=== PATIENT | female | born 1960 | race Caucasian/White ===

== ENCOUNTER 2024-12-12 10:10 | Outpatient (CLI) | payer BC, SELFPAY ==
--- NOTE | 2024-12-12 10:12 | XR_ITS ---
PROCEDURE INFORMATION: Exam: XR Left Knee Exam date and time: 12/12/2024 10:31 AM Age: 64 years old Clinical indication: Pain; Knee; Left; Additional info: Left knee pain TECHNIQUE: Imaging protocol: Radiologic exam of the left knee. Views: 3 views. COMPARISON: No relevant prior studies available. FINDINGS: Bones/joints: Moderate to severe joint space narrowing, medial compartment more than lateral. Moderately large osteophytes. No fractures, dislocations, or focal bone lesions. No joint effusion. Soft tissues: No soft tissue gas, radiopaque foreign bodies, or masses. Vasculature: Atherosclerotic calcifications. IMPRESSION: Moderate to severe osteoarthritis in the left knee.
--- OUTSIDE RECORDS SUMMARY | 2024-12-12 10:13 | XMS_ITS | Clinical Summary ---
Author Organization Healthcare Address [address] [place] [address] Care Team Providers Care Notereader Name Role Phone Unavailable Primary Care Provider Unavailabl e Social History Tobacco Use Types Packs/Day Years Used Date Smoking Tobacco: Never Assessed Comments Unknown Sex and Gender Information Value Date Recorded Sex Assigned at Not on file Gender Identity Female 03/15/2024 4:18 PM EST Sexual Orientation Not on file Plan of Treatment Not on file
--- OUTSIDE RECORDS SUMMARY | 2024-12-12 10:13 | XMS_ITS | Encounter Summary ---
Author Organization Healthcare Address [address] [id number] Care Team Providers Care Candle Molder Hand Name Role Phone Unavailable Primary Care Provider Unavailabl e Reason for Referral * Consultation (Routine) - Authorized Specialty Diagnoses / Procedures Referred By Contac t Referred To Contact Endocrinology Diagnoses Age-related osteoporosis without current pathological fracture Teresa Breaux MD [address] [place] [phone] Phone: tel: fax: [facility] [address] [place] [phone] Phone: tel: fax: Referral ID Status Reason Start Date Expiration Date Visits Requested Visits Authorized [id number] Authorized Specialty Services Required 4 09/14/2025 1 1 Encounter Details Date Type Department Care Team (Late st Contact Info) Description 03/15/2024 [facility] [address] [place] [phone] Teresa Breaux MD [address] [place] [phone] Age-related osteoporosis without current pathological fracture (Primary Dx) Social History Tobacco Use Types Packs/Day Years Used Date Smoking Tobacco: Never Assessed Comments Unknown Sex and Gender Information Value Date Recorded Sex Assigned at Not on file Gender Identity Female 03/15/2024 4:18 PM EST Sexual Orientation Not on file documented as of this encounter Plan of Treatment Scheduled Referrals Name Type Priority Associated Diagnoses Orde r Schedule Ambulatory referral to Endocrinology Outpatient Referral Routine Age-related osteoporosis without current pathological fracture Expected: 03/15/2024 (Approximate), Expires: 09/13/2025 documented as of this encounter Visit Diagnoses Diagnosis Age-related osteoporosis without current pathological fracture- Primary documented in this encounter
--- OUTSIDE RECORDS SUMMARY | 2024-12-12 10:14 | XMS_ITS | Data Portability ---
Author Organization [facility] Ge[facility] ADMIN Address [address] [place] [id number] Care Team Providers Care Receiver Name Role Phone TOVA MADDOX Primary Care Provider Assessment Encounter Date Assessment Date Assessment LastModified by Organization Details LastModified Time 07/23/2024 07/23/2024 The patient is a 63 year old female presenting with bilateral hand pain (worse on the right). The patient has been diagnosed with RA, for which she follows with rheumatology. The patient has a recent history of a thoracic (T10) fracture following a horse riding accident (subsequently diagnosed with osteoporosis). The patient is receiving treatment (monthly injection) for osteoporosis. The patient follows with osteopathic medicine and landcare officer. The patient previously experienced an AE (facial flushing and HTN) following steroid exposure. [email or web address] Not available 07/23/2024 10:00:47 08/23/2024 08/23/2024 The patient is a 63 year old female presenting with bilateral hand pain (worse on the right). The patient has been diagnosed with RA, for which she follows with rheumatology. The patient has a recent history of a thoracic (T10) fracture following a horse riding accident (subsequently diagnosed with osteoporosis). The patient is receiving treatment (monthly injection) for osteoporosis. The patient follows with osteopathic medicine and landcare officer. The patient previously experienced an AE (facial flushing and HTN) following steroid exposure. -follow up B/L TPI trapezius, occipital tendon, and levator scapulae Not available 08/23/2024 10:58:31 09/20/2024 09/20/2024 The patient is a 63 year old female presenting with bilateral hand pain (worse on the right). The patient has been diagnosed with RA, for which she follows with rheumatology. The patient has a recent history of a thoracic (T10) fracture following a horse riding accident (subsequently diagnosed with osteoporosis). The patient is receiving treatment (monthly injection) for osteoporosis. The patient follows with osteopathic medicine and landcare officer. The patient previously experienced an AE (facial flushing and HTN) following steroid exposure. -f/u left knee Supartz#3 and pain Not available 09/20/2024 06:35:23 10/06/2024 10/06/2024 check labs as noted keep f/u with specialists [email or web address] Not available 10/06/2024 17:17:06 11/22/2024 11/22/2024 The patient is a 63 year old female presenting with bilateral hand pain (worse on the right). The patient has been diagnosed with RA, for which she follows with rheumatology. The patient has a recent history of a thoracic (T10) fracture following a horse riding accident (subsequently diagnosed with osteoporosis). The patient is receiving treatment (monthly injection) for osteoporosis. The patient follows with osteopathic medicine and landcare officer. The patient previously experienced an AE (facial flushing and HTN) following steroid exposure. The patient is following up after left knee Supartz series completion. Not available 11/22/2024 08:54:54 Plan of Treatment Reminders Order Date Submit Date Provider Last Modified By Organization Details Last Modified Time Details Appointments OV EST 30 2024 11:00A Regina Rodriguez PA-C Not available Not available Not available Lab lipid panel, serum 2024 025 [facility] [address] [place], [address], 10/07/2024 07:13:20 CBC w/ auto diff 2024 025 Formerly named [facility]), [address] [place] [address], [address], 10/07/2024 07:13:17 CMP, serum or plasma 2024 025 [facility] [address] [place], [address], 10/07/2024 07:13:19 vitamin D, 25-hydrox y, total, serum 2024 025 Formerly named [facility]), [address] [place], [address], 10/07/2024 07:13:23 thyroid panel, serum 2024 025 [facility] [address] [place], [address], 10/07/2024 07:13:21 HbA1c (hemoglob in A1c), blood 2024 025 Formerly named [facility]), [address] [place], [address], 10/07/2024 07:13:22 Referral physical therapist referral - Physical therapy for quad muscle strengthe terrence, pelvic floor therapy for 2-3 times a week for 4-6 weeks. 2024 025 [email or web address] [facility], [address], [address], [place], [address], 09/01/2024 09:53:19 Procedures intra-art icular injection , knee, viscosupp lement (PROC) - ; Left knee Supartz X 5 2024 025 [email or web address] Felix Rosas MD, [address], [place], [address], 09/30/2024 12:10:10 injection , trigger point (PROC) - TPI Bilateral Trapezius , Occipital tendon and Rhomboid injection with Bup only. [id number]. [id number] 2024 025 [email or web address] Felix Rosas MD, [address], [address], [place], [address], 08/10/2024 16:58:02 Surgeries None recorded. Imaging None recorded. Medication Orders famotidin e 40 mg tablet 2024 025 [id number], [address] [place], [address], 10/06/2024 11:23:18 Trelegy Ellipta 100 mcg-62.5 mcg-25 mcg powder for inhalatio n 2024 025 [facility], [address] [place] [address], [address], 10/06/2024 11:23:19 levothyro xine 75 mcg tablet 2024 025 [facility], [address] [place] [address], [address], 10/06/2024 11:23:17 bupropion HCl XL 150 mg 24 hr tablet, extended release 2024 025 [facility], [address] [place] [address], [address], 10/06/2024 11:23:18 Nurtec ODT 75 mg disintegr ating tablet 2024 0[email or web address] [address] [place] [address], [address], 07/23/2024 10:00:46 Patient TargetsNo targets recorded. Patient Instructions Encounter Date Encounter Id Patient Instructions Last Modified By Organization Details Last Modified Time 07/23/2024 [id number] I counseled the patient extensively and informed of the risks of the procedure, including the risk of paralysis, nerve damage, respiratory arrest, arrhythmias, stroke, weakness, and infection, which although very low, could result in or disability. The patient acknowledged to me that they understand and accept these risks. RN EDUCATION Extensive coordination of care provided by RN to educate patient on upcoming procedure and to coordinate obtaining extensive incoming medical records. I have discussed in great detail our potential treatment options which would include a rehabilitative approach to care. This program would include medication management, Physical Therapy, consideration for interventional procedures as appropriate, and lifestyle modification (diet, weight loss, exercise, smoking/tobacco cessation, holistic approach including meditation and yoga). The patient understands and agrees prior to proceeding with this plan. _ __ __ __ __ __ __ __ __ __ __ __ __ __ __ __ __ __ __ __ __ __ __ __ __ __ __ __ _ RECORDS REVIEW: As per clinic policy, we will have the patient sign a release to obtain previous imaging and clinical notes. _ __ __ __ __ __ __ __ __ __ __ __ __ __ __ __ __ __ __ __ __ __ __ __ __ __ __ __ _ PSYCH: Pain affecting Neuro-psych behavior was discussed. Discussed about pain psychological counseling as a part of the multimodal approach to pain treatment. _ __ __ __ __ __ __ __ __ __ __ __ __ __ __ __ __ __ __ __ __ __ __ __ __ __ __ __ _ REHABILITATION: Discussed with the patient the importance of diet, daily physical activity and PT. Discussed with the patient the need to be scheduled for physical therapy since physical therapy will prolong the benefits of the procedure and interventions. _ __ __ __ __ __ __ __ __ __ __ __ __ __ __ __ __ __ __ __ __ __ __ __ __ __ __ __ _ SAIRA: I have reviewed patient's SAIRA report prior to prescribing Schedule II, III, and IV medications that require review by law. [email or web address] Not available 07/23/2024 07:58:06 11/22/2024 [id number] I have discussed in great detail our potential treatment options which would include a rehabilitative approach to care. This program would include medication management, Physical Therapy, consideration for interventional procedures as appropriate, and lifestyle modification (diet, weight loss, exercise, smoking/tobacco cessation, holistic approach including meditation and yoga). The patient understands and agrees prior to proceeding with this plan. _ __ __ __ __ __ __ __ __ __ __ __ __ __ __ __ __ __ __ __ __ __ __ __ __ __ __ __ _ RECORDS REVIEW: As per clinic policy, we will have the patient sign a release to obtain previous imaging and clinical notes. _ __ __ __ __ __ __ __ __ __ __ __ __ __ __ __ __ __ __ __ __ __ __ __ __ __ __ __ _ PSYCH: Pain affecting Neuro-psych behavior was discussed. Discussed about pain psychological counseling as a part of the multimodal approach to pain treatment. _ __ __ __ __ __ __ __ __ __ __ __ __ __ __ __ __ __ __ __ __ __ __ __ __ __ __ __ _ REHABILITATION: Discussed with the patient the importance of diet, daily physical activity and PT. Discussed with the patient the need to be scheduled for physical therapy since physical therapy will prolong the benefits of the procedure and interventions. _ __ __ __ __ __ __ __ __ __ __ __ __ __ __ __ __ __ __ __ __ __ __ __ __ __ __ __ _ SAIRA: I have reviewed patient's SAIRA report prior to prescribing Schedule II, III, and IV medications that require review by law. I counseled the patient extensively and informed of the respective risks/benefits of the procedure(s). The pertinent risks/benefits will be elaborated on and fully outlined in the informed consent. [email or web address] Not available 11/22/2024 08:54:27 Reason for Referral Physical Therapist Referral for Pain of bilateral knee regions Physical therapy for quad muscle strengthening, pelvic floor therapy for 2-3 times a week for 4-6 weeks. Referring Physician: Felix Rosas, Pain Management, Encounter Date: 08/23/2024 Results Created Date Observation Date Name Description Value Unit Range Abnormal Flag Note LastModifiedBy Organization Detail LastModifiedTime 10/07/1910/07/2024 CBC WITH DIFFE RENTI AL/PL ATELE T WBC 6.0 x10e3 /uL 3.4-10 .8 normal Not Available [facility] ([facility]) [address] [place], [address], 10/07/2024 07:13:17 10/07/1910/07/2024 CBC WITH DIFFE RENTI AL/PL ATELE T RBC 4.47 x10e6 /uL 3.77-5 .28 normal Not Available [facility] ([facility]) [address] [place], [address], 10/07/2024 07:13:17 10/07/1910/07/2024 CBC WITH DIFFE RENTI AL/PL ATELE T hemoglobin 13.9 g/dL 11.1-1 5.9 normal Not Available [facility] ([facility]) [address] [place], [address], 10/07/2024 07:13:17 10/07/1910/07/2024 CBC WITH DIFFE RENTI AL/PL ATELE T hematocrit 43.8 % 34.0-4 6.6 normal Not Available [facility] ([facility]) [address] [place], [address], 10/07/2024 07:13:17 10/07/1910/07/2024 CBC WITH DIFFE RENTI AL/PL ATELE T MCV 98 fL 79-97 above high normal Not Available [facility] ([facility]) [address] [place], [address], 10/07/2024 07:13:17 10/07/1910/0710/07/2024 CBC WITH DIFFE RENTI AL/PL ATELE T MCH 31.1 pg 26.6-3 3.0 normal Not Available [facility] ([facility]) [address] [facility], [place], [address], 10/07/2024 07:13:17 10/07/19 25 10/07/2024 CBC WITH DIFFE RENTI AL/PL ATELE T MCHC 31.7 g/dL 31.5-3 5.7 normal Not Available [facility] ([facility]) [address] [facility], [place], [address], 10/07/2024 07:13:17 10/07/1910/07/2024 CBC WITH DIFFE RENTI AL/PL ATELE T RDW 12.6 % 11.7-1 5.4 Not Available [facility] ([facility]) [address] [facility], [place], [address], 10/07/2024 07:13:17 10/07/19 25 10/07/2024 CBC WITH DIFFE RENTI AL/PL ATELE T platelets 260 x10e3 /uL 150-45 0 normal Not Available [facility] ([facility]) [address] [facility], [place], [address], 10/07/2024 07:13:17 10/07/1910/07/2024 CBC WITH DIFFE RENTI AL/PL ATELE T neutrophils 56 % not estab. normal Not Available [facility] ([facility]) [address] [facility], [place], [address], 10/07/2024 07:13:17 10/07/19 25 10/07/2024 CBC WITH DIFFE RENTI AL/PL ATELE T lymphs 22 % not estab. normal Not Available [facility] ([facility]) [address] [facility], [place], [address], 10/07/2024 07:13:17 10/07/19 25 10/07/2024 CBC WITH DIFFE RENTI AL/PL ATELE T monocytes 12 % not estab. normal Not Available [facility] ([facility]) [address] [facility], [place], [address], 10/07/2024 07:13:17 10/07/19 25 10/07/2024 CBC WITH DIFFE RENTI AL/PL ATELE T eos 6 % not estab. normal Not Available [facility] ([facility]) [address] [facility], [place], [address], 10/07/2024 07:13:17 10/07/19 25 10/07/2024 CBC WITH DIFFE RENTI AL/PL ATELE T basos 2 % not estab. normal Not Available [facility] ([facility]) [address] [facility], [place], [address], 10/07/2024 07:13:17 10/07/19 25 10/07/2024 CBC WITH DIFFE RENTI AL/PL ATELE T immature cells [employer] Not Available [facility]) [address] [place], [address], 10/07/2024 07:13:17 10/07/19 25 10/07/2024 CBC WITH DIFFE RENTI AL/PL ATELE T neutrophils (absolute) 3.4 x10e3 /uL 1.4-7. 0 normal Not Available [facility] ([facility]) [address] [facility], [place], [address], 10/07/2024 07:13:17 10/07/19 25 10/07/2024 CBC WITH DIFFE RENTI AL/PL ATELE T lymphs (absolute) 1.3 x10e3 /uL 0.7-3. 1 normal Not Available [facility] ([facility]) [address] [place], [address], 10/07/2024 07:13:17 10/07/19 25 10/07/2024 CBC WITH DIFFE RENTI AL/PL ATELE T monocytes(ab solute) 0.7 x10e3 /uL 0.1-0. 9 normal Not Available [facility] ([facility]) [address] [place], [address], 10/07/2024 07:13:17 10/07/19 25 10/07/2024 CBC WITH DIFFE RENTI AL/PL ATELE T eos (absolute) 0.3 x10e3 /uL 0.0-0. 4 normal Not Available [facility] ([facility]) [address] [facility], [place], [address], 10/07/2024 07:13:17 10/07/1910/07/2024 CBC WITH DIFFE RENTI AL/PL ATELE T baso (absolute) 0.1 x10e3 /uL 0.0-0. 2 normal Not Available [facility] ([facility]) [address] [place], [address], 10/07/2024 07:13:17 10/07/19 25 10/07/2024 CBC WITH DIFFE RENTI AL/PL ATELE T immature granulocytes 2 % not estab. Not Available [facility] ([facility]) [address] [place], [address], 10/07/2024 07:13:17 10/07/19 25 10/07/2024 CBC WITH DIFFE RENTI AL/PL ATELE T immature grans (abs) 0.1 x10e3 /uL 0.0-0. 1 Not Available [facility] ([facility]) [address] [place], [address], 10/07/2024 07:13:17 10/07/1910/07/2024 CBC WITH DIFFE RENTI AL/PL ATELE T NRBC [employer] Not Available [facility] ([facility]) [address] [place], [address], 10/07/2024 07:13:17 10/07/19 25 10/07/2024 CBC WITH DIFFE RENTI AL/PL AMANDA Montes De Oca hematology comments: [employer] Not Available [facility] ([facility]) [address] [facility], [place], [address], 10/07/2024 07:13:17 10/07/19 25 10/07/2024 COMP. METAB OLIC PANEL (14) glucose 76 mg/dL 70-99 normal Not Available [facility] ([facility]) [address] [place], [address], 10/07/2024 07:13:18 10/07/19 25 10/07/2024 COMP. METAB OLIC PANEL (14) BUN 17 mg/dL 8-27 normal Not Available [facility] ([facility]) [address] [facility], [place], [address], 10/07/2024 07:13:18 10/07/19 25 10/07/2024 COMP. METAB OLIC PANEL (14) creatinine 0.94 mg/dL 0.57-1 .00 normal Not Available [facility] ([facility]) [address] [place], [address], 10/07/2024 07:13:18 10/07/19 25 10/07/2024 COMP. METAB OLIC PANEL (14) eGFR 69 mL/mi n/1.7 3 >59 normal Not Available [facility] ([facility]) [address] [facility], [place], [address], 10/07/2024 07:13:18 10/07/19 25 10/07/2024 COMP. METAB OLIC PANEL (14) BUN/creatini ne ratio 18 12-28 normal Not Available [facility] ([facility]) [address] [place], [address], 10/07/2024 07:13:18 10/07/19 25 10/07/2024 COMP. METAB OLIC PANEL (14) sodium 141 mmol/ L 134-14 4 normal Not Available [facility] ([facility]) [address] [facility], [place], [address], 10/07/2024 07:13:18 10/07/19 25 10/07/2024 COMP. METAB OLIC PANEL (14) potassium 4.5 mmol/ L 3.5-5. 2 normal Not Available [facility] ([facility]) [address] [place], [address], 10/07/2024 07:13:18 10/07/19 25 10/07/2024 COMP. METAB OLIC PANEL (14) chloride 105 mmol/ L 96-106 normal Not Available [facility] ([facility]) [address] [place], [address], 10/07/2024 07:13:18 10/07/19 25 10/07/2024 COMP. METAB OLIC PANEL (14) carbon dioxide, total 22 mmol/ L 20-29 normal Not Available [facility] ([facility]) [address] [place], [address], 10/07/2024 07:13:18 10/07/19 25 10/07/2024 COMP. METAB OLIC PANEL (14) calcium 9.3 mg/dL 8.7-10 .3 normal Not Available [facility] ([facility]) [address] [place], [address], 10/07/2024 07:13:18 10/07/19 25 10/07/2024 COMP. METAB OLIC PANEL (14) protein, total 6.3 g/dL 6.0-8. 5 normal Not Available [facility] ([facility]) [address] [place], [address], 10/07/2024 07:13:18 10/07/19 25 10/07/2024 COMP. METAB OLIC PANEL (14) albumin 4.2 g/dL 3.9-4. 9 normal Not Available [facility] ([facility]) [address] [place] [place], [address], 10/07/2024 07:13:18 10/07/19 25 10/07/2024 COMP. METAB OLIC PANEL (14) globulin, total 2.1 g/dL 1.5-4. 5 Not Available [facility] ([facility]) [address] [place], [address], 10/07/2024 07:13:18 10/07/19 25 10/07/2024 COMP. METAB OLIC PANEL (14) bilirubin, total 1.0 mg/dL 0.0-1. 2 normal Not Available [facility] ([facility]) [address] [place], [address], 10/07/2024 07:13:18 10/07/19 25 10/07/2024 COMP. METAB OLIC PANEL (14) alkaline phosphatase 73 IU/L 44-121 normal Not Available [facility]) [address] [facility], [place], [address], 10/07/2024 07:13:18 10/07/19 25 10/07/2024 COMP. METAB OLIC PANEL (14) AST (SGOT) 20 IU/L 0-40 normal Not Available [facility] ([facility]) [address] [facility], [place], [address], 10/07/2024 07:13:18 10/07/19 25 10/07/2024 COMP. METAB OLIC PANEL (14) ALT (SGPT) 19 IU/L 0-32 normal Not Available [facility] ([facility]) [address] [place], [address], 10/07/2024 07:13:18 10/07/19 25 10/07/2024 LIPID PANEL cholesterol, total 215 mg/dL 100-19 9 above high normal Not Available [facility] ([facility]) [address] [place], [address], 10/07/2024 07:13:20 10/07/19 25 10/07/2024 LIPID PANEL triglyceride s 101 mg/dL 0-149 normal Not Available [facility] ([facility]) [address] [place], [address], 10/07/2024 07:13:20 10/07/19 25 10/07/2024 LIPID PANEL HDL cholesterol 62 mg/dL >39 normal Not Available [facility]) [address] [place], [address], 10/07/2024 07:13:20 10/07/19 25 10/07/2024 LIPID PANEL VLDL cholesterol bernadette 18 mg/dL 5-40 Not Available [facility]) [address] [place], [address], 10/07/2024 07:13:20 10/07/19 25 10/07/2024 LIPID PANEL LDL chol calc ([facility]) 135 mg/dL 0-99 above high normal Not Available [facility] ([facility]) [address] [place], [address], 10/07/2024 07:13:20 10/07/19 25 10/07/2024 LIPID PANEL LDL calc comment: [employer] Not Available [facility] ([facility]) [address] [place], [address], 10/07/2024 07:13:20 10/07/19 25 10/07/2024 THYRO ID PROFI LE II TSH 2.370 uIU/m L 0.450- 4.500 normal Not Available [facility] ([facility]) [address] [place], [address], 10/07/2024 07:13:21 10/07/19 25 10/07/2024 THYRO ID PROFI LE II thyroxine (T4) 7.2 ug/dL 4.5-12 .0 normal Not Available [facility] ([facility]) [address] [place], [address], 10/07/2024 07:13:21 10/07/19 25 10/07/2024 THYRO ID PROFI LE II T3 uptake 29 % 24-39 normal Not Available [facility] ([facility]) [address] [place], [address], 10/07/2024 07:13:21 10/07/19 25 10/07/2024 THYRO ID PROFI LE II free thyroxine index 2.1 1.2-4. 9 normal Not Available [facility] ([facility]) [address] [place], [address], 10/07/2024 07:13:21 10/07/19 25 10/07/2024 THYRO ID PROFI LE II triiodothyro nine (T3) 87 NG/dL 71-180 normal Not Available [facility] ([facility]) [address] [place], [address], 10/07/2024 07:13:21 10/07/1910/07/2024 HEMOG LOBIN A1C hemoglobin A1C 5.5 % 4.8-5. 6 normal Predi abete s: 5.7 - 6.4 Diabe kenney: >6.4 Glyce obdulio contr ol for adult s with diabe kenney: <7.0 Not Available [facility] ([facility]) [address] [place], [address], 10/07/2024 07:13:22 10/07/1910/07/2024 VITAM IN D, 25-HY DROXY vitamin D, 25-hydroxy 138.0 NG/mL 30.0-1 00.0 above high normal Vitam in D defic iency has been defin ed by the Insti tute of Medic ine and an Endoc rine Socie ty pract ice guide line as a level of serum 25-OH vitam in D less than 20 ng/mL (1,2) . The Endoc rine Socie ty went on to furth er defin e vitam in D insuf ficie ncy as a level betwe en 21 and 29 ng/mL (2). 1. IOM (Inst itute of Medic ine). 2010. Dieta ry refer ence intradha es for calci um and D. Ramirez land [place]: The [facility] . 2. Tete giron MF, Marito olivo [place], Xavier off-F godfrey i POTTS, et al. Evalu ation , treat ment, and preve ntion of vitam in D defic iency : an Endoc rine Socie ty clini bernadette pract ice guide line. JCEM. 2010; 96(7) :1911 -30. Not Available [facility] ([facility]) [address] [facility], [place], [address], 10/07/2024 07:13:23 06/24/19 25 06/23/2024 MRI, knee, w/o contr ast No observ ation record ed. [facility] (Radiology) [address] [place] [address] , [place], [address], 06/28/2024 15:14:02 08/05/19 25 08/04/2024 MAMMO , scree terrence, bilat eral No observ ation record ed. [address] (Radiology) [address] , [place], [address], 08/05/2024 18:06:27 Result Notes Documentation Provider Name and Address Organization Details Recorded Time Mammo, Screening, Bilateral : Mammogram Mammogram Right: normal Left: normal Tova Maddox MD [address], [place], [address], [facility] [place] 08/05/2024 18:06:27 Problems Name Problem SNOMED Code Status Onset Date Resolution Date Notes Provider Name and Address Organization Details Recorded Time Rheumatoid arthritis 60357897 Active 2021 Not Available [facility] 08:30:10 Chronic obstructiv e pulmonary disease 37247197 Active 2021 Not Available [facility] 3 08:30:10 Hypothyroi dism 59190173 Active 2021 [facility] Available [facility] 3 08:30:10 Obesity 118217382 Active [facility] 3 08:30:10 Unintentio nal weight gain 6529955545866 04 Active 2021 Not Available [facility] 3 08:30:10 Asthma 887916987 Active 2022 [place] null, [place] - [facility] - [place] [facility] [place] 3 15:15:09 Migraine 87220100 Active 2022 [place], [place] [facility] [place] [facility] [place] 3 15:15:17 Arthritis 3004782 Active 2022 [place], [place] [facility] [place] [facility] [place] 3 15:15:23 Myofascial pain 587622773 Active 2024 Rosemary De Leon null, [place] - [facility] - [facility] [place] 5 09:09:28 Problem Notes None recorded. Procedures Surgical History Date Name Laterality Status Provider Name and Address Organization Details Recorded Time 07/23 Cervicothoracic Trigger Point Injection completed KSENIA TRAMMELL PA-C [address], [place], [address] , [place] - [facility] - [facility] [place] 5 09:54:12 06/11 Injection Only completed KSENIA TRAMMELL PA-C [address], [place], [address] , [place] [facility] [place] 5 10:00:17 05/03 Injection Only completed Rosemary De Leon [place] - [facility] - [facility] & [place] 5 09:09:13 07/02 Injection Only completed DAJA CESPEDES PA-C [address], [place], [address] , [place] - LPNT - [facility] & [place] 4 11:16:08 01/20 release of trigger finger [facility] [place] [facility] [place] 3 09:15:18 03/17 completed Cornelia Carr LPNT [facility] & [place] 4 07:41:44 03/17 Date of Last Pap Smear completed Cornelia Carr LPNT [facility] & [place] 4 07:41:44 03/17 Most Recent Bone Density completed Cornelia Carr LPNT [facility] & [place] 4 07:41:44 03/17 Date of Last Colonoscopy completed Milly Ramirezen ROQUE Carr LPNT [facility] & [place] 2 14:06:28 03/17 Appendectomy completed Milly Meyerussen ROQUE Carr LPNT [facility] & [place] 2 14:07:02 augmentation of bila teral breasts completed Brooke COVARRUBIAS ROQUE [facility] & [place] 3 16:50:05 procedure on knee completed Mary Og ROQUE [facility] & [place] 4 15:29:49 bunionectomy with os teotomy of first metatarsal completed Jina Gil ROQUE Carr [facility] & [place] 2 10:58:08 esophagogastroduodenoscopy completed Jina Gil ROQUE Carr LPNT [facility] & [place] 2 10:58:18 colonoscopy completed Jina Gil ROQUE Carr LPNT [facility] & [place] 2 10:58:27 Imaging Results None recorded. Procedure Notes None recorded. Medical Equipment None Reported. Allergies Allergen ID Allergen Name Allergen Category Reaction Reaction Severity Criticality Documentation Date Start Date Code Code System Note Provider Name and Address Organization Details Recorded Time [id number] cat dander environme nt Not available Not available Not available 01/28/2024 Kellen cobos madeline ROQUE - LPNT [facility] & [place] 5 12:49:52 No known drug allergies Medications Name Sig Start Date Stop Date Status Note LastModified by Organization Details LastModified Time Prescriptio n - Clarificati on 07/01 completed Not Available Not Available Not Available celecoxib 200 mg capsule TAKE 1 CAPSULE BY MOUTH EVERY DAY 10/05 completed Not Available Not Available Not Available amoxicillin 500 mg capsule TAKE 1 CAPSULE BY MOUTH THREE TIMES DAILY FOR 7 DAYS 11/28 completed Not Available Not Available Not Available prednisone 10 mg tablet Take 1 tablet every day by oral route. 05/21 completed Not Available Not Available Not Available ipratropium 0.5 mg-albutero l 3 mg (2.5 mg base)/3 mL nebulizatio n soln INHALE CONTENTS OF 1 VIAL (3 ML) VIA NEBULIZER TWICE A DAY NEEDED 06/07 completed Not Available Not Available Not Available tizanidine 2 mg tablet TAKE 1 TABLET BY MOUTH TWICE A DAY NEEDED 10/06 completed Not Available Not Available Not Available albuterol sulfate 2.5 mg/3 mL (0.083 %) solution for nebulizatio n INHALE 3 ML BY NEBULIZAT ION 3 TIMES A DAY 05/04 completed Not Available Not Available Not Available azithromyci n 250 mg tablet TAKE 2 TABLETS BY MOUTH ON DAY 1, THEN 1 TABLET DAILY THEREAFTE R 10/05 completed Not Available Not Available Not Available ibuprofen 800 mg tablet TAKE 1 TABLET BY MOUTH 3 TIMES A DAY NEEDED. active Not Available Not Available No t Available benzonatate 200 mg capsule TAKE 1 CAPSULE BY MOUTH THREE TIMES DAILY NEEDED FOR COUGH 11/28 completed Not Available Not Available Not Available hydrocodone 5 mg-acetamin ophen 325 mg tablet TAKE 1 TABLET BY MOUTH EVERY FOUR HOURS NEEDED FOR PAIN 11/28 completed Not Available Not Available Not Available famotidine 40 mg tablet Take 1 tablet every day by oral route for 90 days. 2024 active Not Available Not Available Not Avai lable prednisone 20 mg tablet TAKE 2 TABLETS BY MOUTH DAILY FOR 3 DAYS 10/05 completed Not Available Not Available Not Available alendronate 70 mg tablet 1 tablet every week by oral route. 10/04 completed Not Available Not Available Not Available prednisone 5 mg tablet TAKE 1 TABLET BY MOUTH TWICE A DAY active Not Available Not Available No t Available prochlorper azine maleate 10 mg tablet TAKE 1 TABLET ORAL ROUTE EVERY 8 HOURS NEEDED active Not Available Not Available No t Available leflunomide 20 mg tablet TAKE 1 TABLET BY MOUTH EVERY DAY active Not Available Not Available No t Available tramadol 50 mg tablet TAKE 1 TABLET BY MOUTH EVERY 12 HOURS NEEDED FOR PAIN 10/06 completed Not Available Not Available Not Available ondansetron 8 mg disintegrat ing tablet Place 1 tablet twice a day by transling ual route for 10 days. 06/06 completed Not Available Not Available Not Available levothyroxi ne 75 mcg tablet TAKE 1 TABLET BY MOUTH ONCE DAILY 2024 active Not Available Not Available Not Avai lable levothyroxi ne 100 mcg tablet TAKE 1 TABLET BY MOUTH EVERY DAY 06/06 completed Not Available Not Available Not Available betamethaso ne acetate and sodium phos 6 mg/mL suspension for injection Take 9 mg by injection route. 05/04 completed Not Available Not Available Not Available levothyroxi ne 88 mcg tablet TAKE 1 TABLET BY MOUTH EVERY DAY 10/01 completed Not Available Not Available Not Available prednisolon e acetate 1 % eye drops,suspe nsion 07/01 completed Not Available Not Available Not Available benzonatate 100 mg capsule 07/01 completed Not Available Not Available Not Available prednisone 2.5 mg tablet Take 1 tablet every day by oral route. 07/01 completed Not Available Not Available Not Available oseltamivir 75 mg capsule 06/06 completed Not Available Not Available Not Available lidocaine 5 % topical patch APPLY 1 PATCH BY TOPICAL ROUTE ONCE DAILY (MAY WEAR UP TO 12HOURS.) active Not Available Not Available No t Available prednisolon e 15 mg/5 mL oral solution RINSE WITH 10ML BY MOUTH FOUR TIMES DAILY THEN SPIT FOR 10 DAYS 11/28 completed Not Available Not Available Not Available acyclovir 200 mg capsule TAKE 1 CAPSULE BY MOUTH TWICE A DAY FOR 5 DAYS 04/23 completed Not Available Not Available Not Available Imitrex 100 mg tablet Take 1 tablet every 6 hours by oral route as needed. 01/02 completed Not Available Not Available Not Available azelastine 137 mcg (0.1 %) nasal spray INHALE 2 SPRAYS IN EACH NOSTRIL EVERY TWELVE HOURS NEEDED FOR SEASONAL ALLERGIES 11/28 completed Not Available Not Available Not Available hydroxychlo roquine 200 mg tablet TAKE 1 TABLET BY MOUTH TWICE A DAY WITH FOOD OR MILK active Not Available Not Available No t Available albuterol sulfate HFA 90 mcg/actuati on aerosol inhaler INHALE 2 PUFFS BY MOUTH NEEDED EVERY 4 HOURS active Not Available Not Available No t Available fluticasone propionate 50 mcg/actuati on nasal spray,suspe nsion USE 1 SPRAY IN EACH NOSTRIL TWICE A DAY 04/23 completed Not Available Not Available Not Available sertraline 50 mg tablet TAKE 1 TABLET BY MOUTH EVERY DAY 10/04 completed Not Available Not Available Not Available doxycycline hyclate 100 mg tablet 07/01 completed Not Available Not Available Not Available amoxicillin 875 mg-potassiu m clavulanate 125 mg tablet TAKE 1 TABLET BY MOUTH TWICE A DAY FOR 7 DAYS 04/23 completed Not Available Not Available Not Available amoxicillin 500 mg-potassiu m clavulanate 125 mg tablet TAKE 1 TABLET BY MOUTH EVERY 8 HOURS FOR 7 DAYS 11/28 completed Not Available Not Available Not Available tobramycin 0.3 %-dexametha sone 0.1 % eye drops,suspe nsion INSTILL 1 DROP INTO THE RIGHT EYE 4 TIMES A DAY WITH HOT COMPRESS AND LID MASSAGE 02/08 completed Not Available Not Available Not Available bupropion HCl XL 150 mg 24 hr tablet, extended release Take 1 tablet every day by oral route for 90 days. 2024 active Not Available Not Available Not Avai lable Zoloft 06/06 completed Not Available Not Available Not Available prednisone 5mg once daily 01/02 completed Not Available Not Available Not Available Orencia (with maltose) 250 mg intravenous solution Inject by intraveno us route. 08/28 completed Not Available Not Available Not Available Actemra 400 mg/20 mL (20 mg/mL) intravenous solution 07/23 completed Not Available Not Available Not Available Orencia 125 mg/mL subcutaneou s syringe 1 mL every month by sub-q route. 04/22 completed Not Available Not Available Not Available Eliquis 5 mg tablet TAKE 1 TABLET BY MOUTH once A DAY 01/23 completed Not Available Not Available Not Available Eliquis 2.5 mg tablet TAKE 1 TABLET BY MOUTH TWICE A DAY 01/24 completed Not Available Not Available Not Available Anoro Ellipta 62.5 mcg-25 mcg/actuati on powder for inhalation INHALE 1 PUFF BY MOUTH ONCE DAILY 10/04 completed Not Available Not Available Not Available Saxenda 3 mg/0.5 mL (18 mg/3 mL) subcutaneou s pen injector Inject by subcutane ous route for 30 days. 07/01 completed Not Available Not Available Not Available Orencia ClickJect 125 mg/mL subcutaneou s auto-inject or INJECT 1 MILLILITE R SUBCUTANE OUSLY once EVERY WEEK 07/01 completed Not Available Not Available Not Available Trelegy Ellipta 100 mcg-62.5 mcg-25 mcg powder for inhalation INHALE 1 PUFF EVERY DAY active Not Available Not Available No t Available Actemra ACTPen active Not Available Not Available Not Available Evenity 210 mg/2.34 mL (105 mg/1.17 mL x 2) subcutaneou s syringe 105 mg by sub-q route. 01/15 completed Not Available Not Available Not Available Evenity 105 mg/1.17 mL subcutaneou s syringe Inject by subcutane ous route. active Not Available Not Available No t Available Ubrelvy 06/06 completed Not Available Not Available Not Available [facility] mg disintegrat ing tablet Take 1 tablet every day by oral route as directed. 2024 active Not Available Not Available Not Avai lable Qulipta 60 mg tablet Take 1 tablet every day by oral route as directed for 15 days. 05/17 completed Not Available Not Available Not Available Vitals Date Recorded Body height Body temperature Oxygen saturation Oxygen saturation in Arterial blood by Pulse oximetry Heart rate Systolic And Diastolic Provider Name and Address Organization Details Last Updated DateTime 5 165.1 cm 98.1 [degF] 98 % 98 % 86 /min 136/84 mm[Hg] Mary NEVAREZ - LPNT - [place] & [place] 5 08:41:30 Date Recorded Body height Body mass index (BMI) Body weight Body temperature Oxygen saturation Oxygen saturation in Arterial blood by Pulse oximetry Heart rate Systolic And Diastolic Provider Name and Address Organization Details Last Updated DateTime 5 165.1 cm 25.3 kg/m2 84700.7 6 g 97.8 [degF] 96 % 96 % 81 /min 106/71 mm[Hg] Kellen Prieto [facility] & [place] 5 08:59:26 Date Recorded Body height Body mass index (BMI) Body weight Body temperature Oxygen saturation Oxygen saturation in Arterial blood by Pulse oximetry Heart rate Systolic And Diastolic Provider Name and Address Organization Details Last Updated DateTime 5 165.1 cm 27 kg/m2 40911.9 6 g 97.4 [degF] 95 % 95 % 82 /min 121/74 mm[Hg] Dorinda Decker [facility] & [place] 5 08:06:15 Date Recorded Body height Body mass index (BMI) Body weight Body temperature Oxygen saturation Oxygen saturation in Arterial blood by Pulse oximetry Heart rate Systolic And Diastolic Provider Name and Address Organization Details Last Updated DateTime 5 165.1 cm 26.3 kg/m2 80110.5 9 g 97.9 [degF] 96 % 96 % 80 /min 128/82 mm[Hg] Karolina Montes [facility] & [place] 5 10:34:24 Date Recorded Body height Body mass index (BMI) Body weight Body temperature Oxygen saturation Oxygen saturation in Arterial blood by Pulse oximetry Heart rate Systolic And Diastolic Provider Name and Address Organization Details Last Updated DateTime 5 165.1 cm 26.8 kg/m2 62356.0 9 g 97.1 [degF] 100 % 100 % 79 /min 145/83 mm[Hg] Mary Wu [facility] & [place] 5 08:37:48 Social History Question Answer Notes LastModified by Organizat ion Details LastModified Time Tobacco Smoking Status Former Smoker Lisa correa, [facility] & [place] 11/28/2021 15:28:02 Do You Have An Advance Directive? No Information not available 01/02/2022 Are You Blind Or Do You Have Difficulty Seeing? No Information not available 01/02/2022 What Is Your Level Of Caffeine Consumption? Occasional Information not available 05/05/2023 Are You Deaf Or Do You Have Serious Difficulty Hearing? No [email or web address] Information not available 05/05/2023 When Did You Quit Smoking? 6-10yearssincel taz [email or web address] Information not available 05/05/2023 What Was The Date Of Your Most Recent Tobacco Screening? 08/29/2022 [email or web address] Information not available 09/09/2024 What Is Your Current Pack Years? 30ormorepackyea rs [email or web address] Information not available 05/05/2023 Are You Passively Exposed To Smoke? No [email or web address] Information not available 11/28/2021 How Much Tobacco Do You Smoke? 0.25 PPD [email or web address] Information not available 09/19/2023 Has Tobacco Cessation Counseling Been Provided? No [email or web address] Information not available 05/05/2023 How Many Years Have You Smoked Tobacco? 35 [email or web address] Information not available 11/28/2021 Sex: Unknown Functional Status Question Answer Note LastModified by Organizat ion Details LastModified Time Do you use any illicit or recreational drugs? No Information not available 11/28/2021 Do you or have you ever used any other forms of tobacco or nicotine? No [email or web address] Information not available 05/05/2023 What is your level of alcohol consumption? Occasional Information not available 01/02/2022 Do you or have you ever used smokeless tobacco? Never used smokeless tobacco Information not available 01/02/2022 What is your exercise level? Moderate [email or web address] Information not available 09/19/2023 Mental Status Question Answer Note LastModified by Organization D etails LastModified Time Do you feel stressed (tense, restless, nervous, or anxious, or unable to sleep at night)? [id number] Information not available 01/02/2022 Family History Relationship Description Onset Age of this Age Resolved Age Notes LastModified by Organization Details LastModified Time Father No current problems or disability Deceas ed [email or web address] Not available 11/22/2024 08:23:01 Mother No current problems or disability Deceas ed - RA [email or web address] Not available 11/22/2024 08:23:01 Mother Headache pt. added direct ly (12/07) [email or web address] Not available 12/07/2021 11:43:22 Mother Rheumatoid arthritis pt. added direct ly (12/07) [email or web address] Not available 12/07/2021 11:43:42 Mother Disorder of thyroid gland pt. added direct ly (12/07) [email or web address] Not available 12/07/2021 11:44:01 Brother No current problems or disability [email or web address] Not available 10/2024 08:23:01 Brother Headache pt. added direct ly (12/07) [email or web address] Not available 12/07/2021 11:43:22 Brother Disorder of thyroid gland pt. added direct ly (12/07) [email or web address] Not available 12/07/2021 11:44:01 Sister No current problems or disability [email or web address] Not available 10/2024 08:23:01 Sister Headache pt. added direct ly (12/07) [email or web address] Not available 12/07/2021 11:43:22 Sister Rheumatoid arthritis pt. added direct ly (12/07) [email or web address] Not available 12/07/2021 11:43:42 Sister Disorder of thyroid gland pt. added direct ly (12/07) [email or web address] Not available 12/07/2021 11:44:01 Son No current problems or disability [email or web address] Not available 10/2024 08:23:01 Son Headache pt. added direct ly (12/07) [email or web address] Not available 12/07/2021 11:43:22 Daughter No current problems or disability Not available 10/2024 08:23:01 Maternal Grandmother Headache pt. added direct ly (12/07) [email or web address] Not available 12/07/2021 11:43:22 Maternal Aunt Headache pt. added direct ly (12/07) [email or web address] Not available 12/07/2021 11:43:22 Maternal Aunt Rheumatoid arthritis pt. added direct ly (12/07) [email or web address] Not available 12/07/2021 11:43:42 Medical History Condition Response Autoimmune disease Y Other Y Vision or Eye Problems Y Arthritis Y Back Problems Y Thyroid Problems Y Asthma Y Lung Disease Y COPD Y Acne Y Skin Problems Y Rheumatoid Arthritis Y Pulmonary Embolism Y Headaches Y Thrombophilias Y Gynecological History Statement/Question Response Abnormal Pap Y 03/17/2022 Date of Last Colonoscopy 03/17/2020 Most Recent Bone Density 03/17/2022 Date of LMP 03/17/2011 Sexually Active? N Menses Monthly Y Date of Last Pap Smear 03/17/2022 Age at Menarche 18 Obstetrics History GPAL:G 0 P 0 0 0 0 Immunizations Vaccine Type Date Status Note Provider Nam e and Address Organization Details Recorded Time Tdap 10/01/2022 completed Tova Maddox MD [address] [facility], [place], [address], [facility] & [place] 10/01/2022 12:40:08 Influenza, MDCK, quadrivalent, PF 12/02/2022 completed Tova Maddox MD [address] [facility], [place], [address], [facility] & [place] 12/02/2022 16:55:12 Past Encounters Encounter ID Performer Location Encounter Start Date Encounter Closed Date Diagnosis/Indication Diagnosis SNOMED-CT Code Diagnosis ICD10 Code Diagnosis IMO Codes Diagnosis Note [id number] Tova Maddox MD [facility] [address] [facility] [address] [place] [address] 11/28/2021 15:10:55 11/28/2021 16:26:15 Rheumatoid arthritis 03286218 M06.9 Pulmonary embolism 38628 003 I26.99 Anxiety 60151410 F41.9 doing well on zoloft Chronic ob structive pulmonary disease 85683043 J44.9 recent PNA, may benefit from daily nebs, Incentive spir. at least BID for next week due to recent PNA issues [id number] Dulce Rodriguez PA-C [facility] [address] [facility] [address] [place] [address] 12/10/2021 15:01:18 12/10/2021 15:52:08 Pulmonary embolism 85838377 I26.99 Patient developed dyspnea and increased heart rate October 2021. She had flu a and B at that time. She had an elevated D-dimer. Imaging performed at [facility] with evidence of pulmonary embolism. Will request imaging report from [facility]. Patient was started on Eliquis at that time. She continues on Eliquis 5 mg 1 tab p.o. b.i.d.. She is tolerating without trouble. Denies any bleeding or bruising. Denies any previous blood clots. Denies any family history of blood clots. Does not take control or estrogen. Patient quit smoking 1 week ago. She had COVID July 2021. She went on a long car ride to [place] July 2021. She had surgery on her toes March 2021. Discussed continue on Eliquis for at least 3 months. Will schedule follow-up imaging around January 2022. Will order labs today for further evaluation . Will follow up with further recommenda tions. [id number] Tova Maddox MD [facility] [address] [facility] [address] [place] [address] 01/02/2022 15:40:45 01/02/2022 16:22:11 COVID-19 [id number] U07.1 Influenza 9808833 J11.1 Patient immunocompromised 664181549 D84.9 Tachycardia 3717692 R00. 0 [id number] Dulce Rodriguez PA-C [facility] [address] [facility] [address] [place] [address] 01/21/2022 15:15:36 01/23/2022 12:16:02 Pulmonary embolism 84621880 I26.99 Patient developed dyspnea and increased heart rate October 2021. She had flu a and B at that time. She had an elevated D-dimer. Imaging performed at [facility] with evidence of pulmonary embolism. Will request imaging report from [facility]. Patient was started on Eliquis at that time. She continues on Eliquis 5 mg 1 tab p.o. b.i.d.. She is tolerating without trouble. Denies any bleeding or bruising. Denies any previous blood clots. Denies any family history of blood clots. Does not take control or estrogen. Patient quit smoking 1 week ago. She had COVID July 2021. She went on a long car ride to [place] July 2021. She had surgery on her toes March 2021. Discussed continue on Eliquis for at least 3 months. Will schedule follow-up imaging around January 2022. Will order labs today for further evaluation . Will follow up with further recommenda tions. [id number] Cristiano Brody, DNP, MANAGER PAYER, WATER [employer]ATMENT PLANT ENGINEER-C [facility] n Bariatric s and Adv Surg [address] [facility] [address] [place] [address] 01/21/2022 10:51:19 01/21/2022 11:47:56 Hypothyroidism 54086937 E03.9 Obesity 440606175 E66.9 patient will be started on Saxenda. Educated pt on med use and possible side effects; literature given on use and possible side effects. Advised to use daily 0.6mg inj daily x 1 week; increase weekly by 0.6mg until max of 3mg is reached. If unable to tolerate side effects, can dose back down for 1 week and try again. If misses more than 3 days then start over. RTC in 3 weeks for follow up. Advised qid intake 50% protein 8169-1861 calories/d y less than 100 carbs/dy Long discussion today of In[employer] results including PBF(percen t body fat) SMM (skeletal muscle mass) Visceral fat level level BMR Segmental Fat Analysis and Segmental Lean Analysis. Patient encouraged pt to take minimal calories as per BMR and to anticipate changes in SMM and PBF values not just total weight. Repeat BRIANA in 2-3mth suggested Patient was reassured on today's visit. Dialogue content in great detail regarding the benefits of proper diet as well as regular and routine exercise. In regards to exercise, we discussed reaching target heart rate for least 20 minutes 3 times a week. We also highlighte d the importance of staying well hydrated. Proper handwashin g was also encouraged . Patient was advised to keep in close contact with their primary care provider and/or any specialty provider (s). Will follow-up in 2 months, sooner if needed. I did offer dietitian visit today, patient declines at this time. pt given a sample of Saxenda in office today. Chronic ob structive pulmonary disease 08917146 J44.9 Unintentio nal weight gain [id number] 88225 R63.5 Rheumatoid arthritis 698 38440 M06.9 [id number] Phuc Barajas MD [facility] [place] [facility] [address] [facility] [address] 04/24/2022 15:29:07 04/24/2022 16:40:56 Pulmonary embolism 32348090 I26.99 Patient developed dyspnea and increased heart rate October 2021. She had flu a and B at that time. She had an elevated D-dimer. Imaging performed at [facility] with evidence of pulmonary embolism. Will request imaging report from [facility]. Patient was started on Eliquis at that time. She continues on Eliquis 5 mg 1 tab p.o. b.i.d.. She is tolerating without trouble. Denies any bleeding or bruising. Denies any previous blood clots. Denies any family history of blood clots. Does not take control or estrogen. Patient quit smoking 1 week ago. She had COVID July 2021. She went on a long car ride to [place] July 2021. She had surgery on her toes March 2021. Patient returns for evaluation on April 24, 2022. Discussed repeat labs and will repeat factor 8 activity level. No acute changes since last visit. Will follow-up labs make further recommenda tions. Discussed if factor 8 activity level still persistent ly elevated considerat ion for change of Eliquis to prophylact ic dosing at 2.5 mg p.o. b.i.d..Parviz nunez follow-up antibody testing. If found to have antibody positivity would consider staying on full dose of Eliquis. Will follow-up Rheumatoid arthritis 698 54772 M06.9 Patient with history of rheumatoid arthritis. Patient follows with [facility] in [place]. Patient has recently been started back on therapy for rheumatoid arthritis. For pulmonary embolism recently and when discussing anticoagul ation duration discussed antibody evaluation to assess for any signs of anti phospholip id antibody syndrome. Will follow-up labs make further recommenda tions. Discussed if antibody testing with positive would repeat in another 3-4 months to assess for any persistent positivity . Will follow-up Tobacco user 100199489 Z 72.0 Patient with 35 pack-year history of smoking. Currently patient reports using about 1/2 of a cigarette a few times a day. Patient recently had CT scan of the chest without abnormalit y. Patient continues with annual low-dose lung cancer screening CT scan. [id number] Tova Maddox MD [facility] [address] [place] [address] [address] [place] [address] 05/21/2022 12:56:39 05/21/2022 14:04:19 Tachycardia 0158374 R00.0 Acquired hypothyroidism [id number] E03.9 Increased blood pressure 97329378 R03.0 Chronic ob structive pulmonary disease 73127026 J44.9 [id number] Tova Maddox MD [address] [place] [address] 06/06/2022 16:06:11 06/06/2022 17:12:59 Rheumatoid arthritis 63597444 M06.9 pending infusionco nsider injection Hypothyroidism 31034306 E03.9 repeat labs in 4-6 weeks to assess efficacy on labs Jaw pain 982901152 R68.8 4 trial of muscle relaxer [id number] Tova Maddox MD [address] [place] [address] 07/04/2022 16:05:14 07/04/2022 16:59:02 Hypothyroidism 48733586 E03.9 pending to see if further benefit with dose reduction or if we stay at current dose [id number] Phuc Barajas MD [facility] [address] [facility] [address] [place] [address] 07/31/2022 15:15:27 07/31/2022 16:05:31 Pulmonary embolism [id number] I26.99 Patient developed dyspnea and increased heart rate October 2021. She had flu a and B at that time. She had an elevated D-dimer. Imaging performed at [facility] with evidence of pulmonary embolism. Will request imaging report from [facility]. Patient was started on Eliquis at that time. She continues on Eliquis 5 mg 1 tab p.o. b.i.d.. She is tolerating without trouble. Denies any bleeding or bruising. Denies any previous blood clots. Denies any family history of blood clots. Does not take control or estrogen. Patient quit smoking 1 week ago. She had COVID July 2021. She went on a long car ride to [place] July 2021. She had surgery on her toes March 2021. Patient returns for evaluation on April 24, 2022. Discussed repeat labs and will repeat factor 8 activity level. No acute changes since last visit. Will follow-up labs make further recommenda tions. Discussed if factor 8 activity level still persistent ly elevated considerat ion for change of Eliquis to prophylact ic dosing at 2.5 mg p.o. b.i.d.. Labs on April 24, 2022 with beta 2 glycoprote in antibodies normal. Normal IgG level. Normal IgA level. Normal IgM. Anticardio lipin IgG antibody normal. Anticardio lipin IgM antibody normal. Anticardio lipin IgA antibody normal. Factor 8 activity level at 197%. Patient continues on Eliquis. Patient returns on July 31, 2022. Discussed repeat labs today. Will follow-up in make further recommenda tions.Hope ful to transition to Eliquis 2.5 mg p.o. b.i.d. at prophylact ic dosing. Will follow-up rheumatolo gy evaluation . Rheumatoid arthritis 698 96846 M06.9 Patient with history of rheumatoid arthritis. Patient follows with Rheumatolo gy in [place]. Patient has recently been started back on therapy for rheumatoid arthritis. Patient has recently had flare of rheumatoid arthritis. Currently on prednisone as well as Orencia. Patient also on Plaquenil. Currently with signs of synovitis on her knuckles bilaterall y. Will follow-up repeat labs. Tobacco user [id number] Z 72.0 Patient with 35 pack-year history of smoking. Currently patient reports using about 1/2 of a cigarette a few times a day. Patient recently had CT scan of the chest without abnormalit y. Patient continues with annual low-dose lung cancer screening CT scan. Chronic ki dney disease stage 3A 714418143 N18.31 Labs on April 24, 2022 with creatinine 1.1 BUN 25 and GFR at 54 consistent with stage IIIA chronic kidney disease. [id number] Tova Maddox MD [facility] [address] [place] [address] [address] [place] [address] 08/29/2022 09:02:13 08/29/2022 10:18:16 Hypothyroidism 41213636 E03.9 would have her take 75mcg instead of 88, labs pending [id number] Tova Maddox MD [facility] [address] [place] [address] [address] [place] [address] 10/01/2022 08:13:53 10/01/2022 09:24:37 Screening mammography of bilateral breasts [id number] 54178 Z12.31 Adult heal th examination 404486188 Z00.00 Hyperlipid emia screening 088353168 Z13.220 Diabetes m ellitus screening 866833707 Z13.1 Acquired hypothyroidism 005349916 E03.9 Depressive disorder 3548 9007 F32.A At [facility] risk of osteoporosis 845143369 Z91.89 Long-term current use of systemic steroid 5304972809 13965 Z79.52 Pulmonary embolism 09468 003 I26.[address] Barajas Patient immunocompromised 317121450 D84.9 [id number] Tova Maddox MD [facility] [address] [facility] [address] [place] [address] 12/02/2022 15:13:23 12/02/2022 16:25:16 Rheumatoid arthritis 72370463 M06.9 pending disability benefits with work up pending this weekend Chronic pain 79468402 G8 9.29 refer for consult for possible injection of the contracted tendons in bilateral hands Administra tion of influenza vaccine 22968359 Z23 [id number] Phuc Barajas MD [facility] [address] [facility] [address] [place] [address] 01/01/2023 15:24:10 01/01/2023 15:57:52 Pulmonary embolism 00711710 I26.99 Patient developed dyspnea and increased heart rate October 2021. She had flu a and B at that time. She had an elevated D-dimer. Imaging performed at [facility] with evidence of pulmonary embolism. Will request imaging report from [facility]. Patient was started on Eliquis at that time. She continues on Eliquis 5 mg 1 tab p.o. b.i.d.. She is tolerating without trouble. Denies any bleeding or bruising. Denies any previous blood clots. Denies any family history of blood clots. Does not take control or estrogen. Patient quit smoking 1 week ago. She had COVID July 2021. She went on a long car ride to [place] July 2021. She had surgery on her toes March 2021. Patient returns for evaluation on April 24, 2022. Discussed repeat labs and will repeat factor 8 activity level. No acute changes since last visit. Will follow-up labs make further recommenda tions. Discussed if factor 8 activity level still persistent ly elevated considerat ion for change of Eliquis to prophylact ic dosing at 2.5 mg p.o. b.i.d.. Labs on April 24, 2022 with beta 2 glycoprote in antibodies normal. Normal IgG level. Normal IgA level. Normal IgM. Anticardio lipin IgG antibody normal. Anticardio lipin IgM antibody normal. Anticardio lipin IgA antibody normal. Factor 8 activity level at 197%. Patient continues on Eliquis. Patient returns on July 31, 2022. Discussed repeat labs today. Will follow-up in make further recommenda tions.Hope ful to transition to Eliquis 2.5 mg p.o. b.i.d. at prophylact ic dosing. Will follow-up rheumatolo gy evaluation . Rheumatoid arthritis 698 94496 M06.9 Patient with history of rheumatoid arthritis. Patient follows with Rheumatolo gy in [place]. Patient has recently been started back on therapy for rheumatoid arthritis. Patient has recently had flare of rheumatoid arthritis. Currently on prednisone as well as Orencia. Patient also on Plaquenil. Currently with signs of synovitis on her knuckles bilaterall y. Will follow-up repeat labs. Tobacco user 807325368 Z 72.0 Patient with 35 pack-year history of smoking. Currently patient reports using about 1/2 of a cigarette a few times a day. Patient recently had CT scan of the chest without abnormalit y. Patient continues with annual low-dose lung cancer screening CT scan. Chronic ki dney disease stage 3A [id number] N18.31 Labs on April 24, 2022 with creatinine 1.1 BUN 25 and GFR at 54 consistent with stage IIIA chronic kidney disease. Postmenopa usal osteopenia 818158289 M85.80 Bone density scan on October 02, 2022 with lumbar spine bone density of-2.4. Bilateral femurs with T-score-1. 3 consistent with osteopenia . Would recommend repeat bone density in September 2024. Patient very close to osteoporos is. Recommende d calcium and vitamin-D supplement ation. [id number] Felix Rosas MD [facility] [address] [place] [address] 01/13/2023 14:32:47 01/13/2023 15:17:02 Dupuytren's contracture of finger 386000865 M72.0 Bilateral trigger fingers 9185104312 8030058 M65.30 Rheumatoid arthritis 698 74194 M06.9 Pain of temporomandibular joint 48912799 M26.629 [id number] Felix Rosas MD [facility] [address] [place] [address] 01/23/2023 13:49:39 01/23/2023 15:04:04 Dupuytren's contracture of finger 746828455 M72.0 Bilateral trigger fingers 9476034228 7155342 M65.30 Rheumatoid arthritis 698 72890 M06.9 Pain of temporomandibular joint 97885659 M26.629 Pain of le ft knee joint 3299823312 11237 M25.562 Arthritis of left knee 5945875266 881054 M13.862 [id number] Tova Maddox MD [place] [address] [facility] [address] [place] [address] 02/17/2023 14:49:06 02/17/2023 15:32:48 Osteoporosis 61873377 M81.0 pt would l meek to start prolia through the infusion center Chronic ob structive pulmonary disease 45712780 J44.9 Rheumatoid arthritis 698 10970 M06.9 pending med changes from her rheumatolo gist [id number] DAJA CESPEDES PA-C [facility] [address] [facility] [place] [address] 05/05/2023 09:13:42 05/05/2023 10:58:03 Dupuytren's contracture of finger 492195823 M72.0 Bilateral trigger fingers 9424199372 6379293 M65.30 Rheumatoid arthritis 698 85744 M06.9 Pain of temporomandibular joint 02734031 M26.629 Pain of le ft knee joint 0774847405 81746 M25.562 Arthritis of left knee 1664668497 125120 M13.862 Dupuytren contracture of right palm 8799372591 6418893 M72.0 [id number] Tova Maddox MD [facility] [address] [place] [address] 04/22/2023 14:01:02 04/22/2023 15:08:19 COVID-19 079939104 U07.1 Chronic ob structive pulmonary disease 99904189 J44.9 [id number] Dulce Rodriguez PA-C [facility] [address] [place] [address] 07/02/2023 14:52:48 07/02/2023 16:29:24 Pulmonary embolism 60454919 I26.99 Patient developed dyspnea and increased heart rate October 2021. She had flu a and B at that time. She had an elevated D-dimer. Imaging performed at [facility] with evidence of pulmonary embolism. Will request imaging report from [facility]. Patient was started on Eliquis at that time. She continues on Eliquis 5 mg 1 tab p.o. b.i.d.. She is tolerating without trouble. Denies any bleeding or bruising. Denies any previous blood clots. Denies any family history of blood clots. Does not take control or estrogen. Patient quit smoking 1 week ago. She had COVID July 2021. She went on a long car ride to [place] July 2021. She had surgery on her toes March 2021. Patient returns for evaluation on April 24, 2022. Discussed repeat labs and will repeat factor 8 activity level. No acute changes since last visit. Will follow-up labs make further recommenda tions. Discussed if factor 8 activity level still persistent ly elevated considerat ion for change of Eliquis to prophylact ic dosing at 2.5 mg p.o. b.i.d.. Labs on April 24, 2022 with beta 2 glycoprote in antibodies normal. Normal IgG level. Normal IgA level. Normal IgM. Anticardio lipin IgG antibody normal. Anticardio lipin IgM antibody normal. Anticardio lipin IgA antibody normal. Factor 8 activity level at 197%. Patient returns for follow-up on July 02, 2023. Patient continues on Eliquis 2.5 mg p.o. b.i.d.. She is wanting to stop Eliquis. Will follow-up factor 8 activity today. If improving will discontinu e Eliquis. Patient does not have any symptoms at this time. Patient has started back smoking a few cigarettes per day. She has smoked for 30 years. Discussed low-dose chest CT due to smoking history. Patient is agreeable. Will schedule. Will follow up labs today. Rheumatoid arthritis 698 78234 M06.9 Patient with history of rheumatoid arthritis. Patient follows with [facility] in [place]. Patient has recently been started back on therapy for rheumatoid arthritis. Patient has recently had flare of rheumatoid arthritis. Currently on prednisone as well as Orencia. Patient also on Plaquenil. Currently with signs of synovitis on her knuckles bilaterall y. Will follow-up repeat labs. Tobacco user 260076568 Z 72.0 Patient with 35 pack-year history of smoking. Currently patient reports using about 1/2 of a cigarette a few times a day. Patient recently had CT scan of the chest without abnormalit y. Patient continues with annual low-dose lung cancer screening CT scan. Chronic ki dney disease stage 3A 352329804 N18.31 Labs on April 24, 2022 with creatinine 1.1 BUN 25 and GFR at 54 consistent with stage IIIA chronic kidney disease. Postmenopa usal osteopenia 888535713 M85.80 Bone density scan on October 02, 2022 with lumbar spine bone density of-2.4. Bilateral femurs with T-score-1. 3 consistent with osteopenia . Would recommend repeat bone density in September 2024. Patient very close to osteoporos is. Recommende d calcium and vitamin-D supplement ation. [id number] DAJA CESPEDES PA-C [facility] [address] [facility] [place] [address] 07/03/2023 09:46:14 07/03/2023 11:00:27 Dupuytren's contracture of finger 249878594 M72.0 Bilateral trigger fingers 4927584575 7407160 M65.30 Rheumatoid arthritis 698 30509 M06.9 Pain of temporomandibular joint 46153153 M26.629 Pain of le ft knee joint 9365861740 29155 M25.562 Arthritis of left knee 3606641356 423013 M13.862 Dupuytren contracture of right palm 7009743759 6705767 M72.0 [id number] Tova Maddox MD [facility] [place] [address] [place] [address] 10/06/2023 09:01:22 10/06/2023 10:37:03 Adult health examination 122886496 Z00.00 Chronic ob structive pulmonary disease 65953690 J44.9 pt doing well on trelegy Hypothyroidism 55664693 E03.9 due for labs Hyperlipid emia screening 544927220 Z13.220 Diabetes m ellitus screening 069014266 Z13.1 Depressive disorder 3548 9007 F32.A doing well off zoloft Osteoporosis 00946468 M8 1.0 pt denied prolia injections , did not tolerate alendronat e. pt will discuss also with rheumatolo gy for help on options Gastroesop hageal reflux disease 872748667 K21.9 [id number] Dulce Rodriguez PA-C [facility] [address] [place] [address] 12/18/2023 10:21:57 12/18/2023 11:15:35 Pulmonary embolism 92188748 I26.99 Patient developed dyspnea and increased heart rate October 2021. She had flu a and B at that time. She had an elevated D-dimer. Imaging performed at [facility] with evidence of pulmonary embolism. Will request imaging report from [facility]. Patient was started on Eliquis at that time. She continues on Eliquis 5 mg 1 tab p.o. b.i.d.. She is tolerating without trouble. Denies any bleeding or bruising. Denies any previous blood clots. Denies any family history of blood clots. Does not take control or estrogen. Patient quit smoking 1 week ago. She had COVID July 2021. She went on a long car ride to [place] July 2021. She had surgery on her toes March 2021. Patient returns for evaluation on April 24, 2022. Discussed repeat labs and will repeat factor 8 activity level. No acute changes since last visit. Will follow-up labs make further recommenda tions. Discussed if factor 8 activity level still persistent ly elevated considerat ion for change of Eliquis to prophylact ic dosing at 2.5 mg p.o. b.i.d.. Labs on April 24, 2022 with beta 2 glycoprote in antibodies normal. Normal IgG level. Normal IgA level. Normal IgM. Anticardio lipin IgG antibody normal. Anticardio lipin IgM antibody normal. Anticardio lipin IgA antibody normal. Factor 8 activity level at 197%. Patient returns for follow-up on December 18, 2023. Patient continues on Eliquis 2.5 mg p.o. b.i.d.. She is wanting to stop Eliquis. Normal factor 8 activity on July 02, 2023. Patient would like to discontinu e Eliquis. She will take ASA 81mg daily instead. She knows signs and symptoms of a blood clot to watch for. Discussed if she ever develops another clot she will be on lifelong anticoagul ant. Patient has started back smoking a few cigarettes per day. She has smoked for 30 years. Low-dose chest CT due to smoking history on August 20, 2023 was stable. Will continue with annual low-dose chest CT. Patient states she had normal labs about 2 months ago per her PCP. Rheumatoid arthritis 698 27329 M06.9 Patient with history of rheumatoid arthritis. Patient follows with [facility] in [place]. Patient has recently been started back on therapy for rheumatoid arthritis. Patient has recently had flare of rheumatoid arthritis. Currently on prednisone as well as Orencia. Patient also on Plaquenil. Currently with signs of synovitis on her knuckles bilaterall y. Will follow-up repeat labs. Tobacco user 624153890 Z 72.0 Patient with 35 pack-year history of smoking. Currently patient reports using about 1/2 of a cigarette a few times a day. Patient recently had CT scan of the chest without abnormalit y. Patient continues with annual low-dose lung cancer screening CT scan. Low-dose chest CT due to smoking history on August 20, 2023 was stable. Will continue with annual low-dose chest CT. Chronic ki dney disease stage 3A 037835785 N18.31 Labs on April 24, 2022 with creatinine 1.1 BUN 25 and GFR at 54 consistent with stage IIIA chronic kidney disease. Postmenopa usal osteopenia 469019431 M85.80 Bone density scan on October 02, 2022 with lumbar spine bone density of-2.4. Bilateral femurs with T-score-1. 3 consistent with osteopenia . Would recommend repeat bone density in September 2024. Patient very close to osteoporos is. Recommende d calcium and vitamin-D supplement ation. Multiple n odules of lung 894534049 R91.8 Low-dose chest CT due to smoking history on August 20, 2023 was stable. Stable 4 mm left lower lobe nodule. Stable 6 mm right lower lobe noduleWill continue with annual low-dose chest CT. [id number] DAJA CESPEDES PA-C [facility] [address] [place] [address] 01/28/2024 08:38:29 01/28/2024 09:16:54 Dupuytren's contracture of finger 418352809 M72.0 - The patient complains of right hand pain with contractur e, including ulnar deviation and triggering of the 3rd and 4th digits. Based on the history and physical exam it appears that the pain is multifacto rial in origin, including Dupuytren contractur e, ulnar deviation, and stenosing tenosynovi tis secondary to RA and osteoarthr itis.- The patient has attempted to make lifestyle modificati ons, but pain continues to impede performing ADLs, thereby negatively affecting quality of life. I think the patient is a good candidate for interventi onal treatment, as their pain has been refractory to conservati ve (PT and at-home exercises/ stretches) and pharmacolo gic approaches .- The patient is 1 year S/P trigger finger injection at the 3rd and 4th digits of the right hand, which was successful in the short-term .- After a detailed discussion of treatment modalities and the respective risks/bene fits, I will proceed with scheduling a right hand Xiaflex injection. Bilateral trigger fingers [id number] 2700244 M65.30 Rheumatoid arthritis 698 19940 M06.9 Pain of le ft knee joint 8478000077 32409 M25.562 Arthritis of left knee 0280238374 754326 M13.862 Dupuytren contracture of right palm 4860973663 6012842 M72.0 Osteoarthr itis of left knee joint 4694976517 18045 M17.12 - The patient complains of left knee pain, which was exacerbate d recently after riding a horse (coinciden tally she missed a dose of Prednisone 2.5 mg at the time of the flare up).- The patient has attempted to make lifestyle modificati ons, but pain continues to impede performing ADLs, thereby negatively affecting quality of life. I think the patient is a good candidate for interventi onal treatment, as their pain has been refractory to conservati ve (PT and at-home exercises/ stretches) and pharmacolo gic approaches .- The patient recently (yesterday ) received a left knee steroid injection at [facility] with minimal benefit. The patient notes that she experience d an AE (facial flushing and HTN).- Maria Esther g the patient previously received significan t (greater than 50% pain relief for at least 6 months) benefit from a left knee gel series, I will repeat. I will proceed with scheduling left knee Synojoynt series injections . I think a gel series has potential to provide greater benefit for a longer duration of time. Headache 36290671 R51.9 - The patient complains of headache, which wakes her up from sleep and improves after being awake a few hours.- I instructed the patient to start a headache diary.- I will begin to treat headache next. [id number] Tova Maddox MD [facility] [place] [address] [place] [address] 02/09/2024 15:49:32 02/09/2024 17:10:51 Rheumatoid arthritis 18802008 M06.9 [id number] Tova Maddox MD [facility] [address] [facility] [address] [place] [address] 03/29/2024 13:49:11 03/29/2024 14:36:02 Rheumatoid arthritis 91892141 M06.9 Chronic pain 41222786 G8 9.29 Migraine 31648488 G43.90 9 Dupuytren' s disease of palm 613069749 M72.0 [id number] DAJA CESPEDES PA-C [facility] [address] [facility] [address] [place] [address] 04/23/2024 08:25:45 04/23/2024 09:08:06 Episodic migraine 5003553901 36300 G43.C1 - The patient notes that migraine headache has been refractory to numerous medication s, including OTC medication , prescripti on NSAIDS, Tizandine, Prednisone , Imitrex, Ubrelvy, Qulipta, Tramadol, and Hydrocodon e/APAP, among others.- In effort to better control migraine headache, I will prescribe Nurtec 75 mg ODT once daily prn. Dupuytren' s contracture of finger 915814584 M72.0 - The patient complains of right hand pain with contractur e, including ulnar deviation and triggering of the 3rd and 4th digits. Based on the history and physical exam it appears that the pain is multifacto rial in origin, including Dupuytren contractur e, ulnar deviation, and stenosing tenosynovi tis secondary to RA and osteoarthr itis.- The patient has attempted to make lifestyle modificati ons, but pain continues to impede performing ADLs, thereby negatively affecting quality of life. I think the patient is a good candidate for interventi onal treatment, as their pain has been refractory to conservati ve (PT and at-home exercises/ stretches) and pharmacolo gic approaches .- The patient is 14 months S/P trigger finger injection at the 3rd and 4th digits of the right hand, which was successful in the short-term .- The patient is scheduled for a right hand Xiaflex injection. Bilateral trigger fingers 5834583328 7186422 M65.30 Rheumatoid arthritis 698 62181 M06.9 Pain of le ft knee joint 5822677490 21336 M25.562 Arthritis of left knee 4356516977 212922 M13.862 Dupuytren contracture of right palm 9598626244 9093645 M72.0 Osteoarthr itis of left knee joint 0880761909 09205 M17.12 - The patient is 6 weeks S/P completion of left knee Synojoynt series injections , which were successful in decreasing left knee pain by greater than 50%, yet pain remains bothersome .- I'm suspicious of left knee pes anserine bursitis.- I discussed the possibilit y of scheduling a left pes anserine bursa injection, but she doesn't want to schedule at this time. Headache 93130507 R51.9 Myofascial pain 87077277 9 M79.10 - The patient complains of neck pain described as tightness/ spasm and headache (wakes her up from sleep and improves after being awake a few hours). I think headache is mixed in origin (migrainou s and cervicogen ic). I think occipital neuralgia may be involved too (headache oftentimes radiates from the base of the skull to the vertex and orbit),- The patient has attempted to make lifestyle modificati ons, but pain continues to impede performing ADLs, thereby negatively affecting quality of life. I think the patient is a good candidate for interventi onal treatment, as their pain has been refractory to conservati ve (PT and/or physician- directed at-home exercises/ stretches) and pharmacolo gic approaches .- I will proceed with scheduling a TPI of the bilateral cervico-oc cipital region. Pes anseri nus bursitis of left knee [id number] 704058 M70.52 [id number] Felix Rosas MD [facility] [address] [facility] [address] [place] [address] 05/03/2024 08:32:19 05/03/2024 09:30:28 Myofascial pain [id number] M79.18 [id number] Felix Rosas MD [facility] [address] [facility] [address] [place] [address] 05/17/2024 09:27:05 05/17/2024 11:53:02 Episodic migraine [id number] 30213 G43.C1 - The patient notes that migraine headache has been refractory to numerous medication s, including OTC medication , prescripti on NSAIDS, Tizandine, Prednisone , Imitrex, Ubrelvy, Qulipta, Tramadol, and Hydrocodon e/APAP, among others.-Co ntinue Nurtec 75mg ODT Dupuytren' s contracture of finger 176066419 M72.0 - The patient complains of right hand pain with contractur e, including ulnar deviation and triggering of the 3rd and 4th digits. Based on the history and physical exam it appears that the pain is multifacto rial in origin, including Dupuytren contractur e, ulnar deviation, and stenosing tenosynovi tis secondary to RA and osteoarthr itis.- The patient has attempted to make lifestyle modificati ons, but pain continues to impede performing ADLs, thereby negatively affecting quality of life. I think the patient is a good candidate for interventi onal treatment, as their pain has been refractory to conservati ve (PT and at-home exercises/ stretches) and pharmacolo gic approaches .- The patient is S/P trigger finger injection at the 3rd and 4th digits of the right hand, which was successful in the short-term .- The patient is pending approval for a right hand Xiaflex injection. Bilateral trigger fingers [id number] 3402432 M65.30 Rheumatoid arthritis 698 73003 M06.9 Pain of le ft knee joint 3733005765 92866 M25.562 Arthritis of left knee 8316787449 911302 M13.862 Dupuytren contracture of right palm 0725147207 4980157 M72.0 Osteoarthr itis of left knee joint 9709043208 47704 M17.12 - The patient is S/P completion of left knee Synojoynt series injections , which were successful in decreasing left knee pain by greater than 50%, yet pain remains bothersome .- I'm suspicious of left knee pes anserine bursitis.- I discussed the possibilit y of scheduling a left pes anserine bursa injection, but she doesn't want to schedule at this time. Headache 39110885 R51.9 Myofascial pain 26760261 9 M79.10 - The patient complains of neck pain described as tightness/ spasm and headache (wakes her up from sleep and improves after being awake a few hours). I think headache is mixed in origin (migrainou s and cervicogen ic). I think occipital neuralgia may be involved too (headache oftentimes radiates from the base of the skull to the vertex and orbit),- The patient has attempted to make lifestyle modificati ons, but pain continues to impede performing ADLs, thereby negatively affecting quality of life. I think the patient is a good candidate for interventi onal treatment, as their pain has been refractory to conservati ve (PT and/or physician- directed at-home exercises/ stretches) and pharmacolo gic approaches .- The patient received the TPI of the cervico-oc cipital region on 05/03/2024 and states it was successful in decreasing her pain in her neck by 100% and improvemen t in functionin g including neck rotation.- The patient is a good candidate to receive injections Q3. Pes anseri nus bursitis of left knee [id number] 093488 M70.52 [id number] Tova Maddox MD [facility] [address] [place] [address] 06/07/2024 08:50:07 06/07/2024 10:02:41 Abnormal renal function [id number] N28.9 125493 Cobalamin deficiency 190 089375 E53.8 842212 Pain of le ft knee joint 0235241753 89954 M25.562 375679 [id number] Felix Rosas MD [facility] [address] [place] [address] 06/11/2024 09:41:55 06/11/2024 10:37:57 Myofascial pain 406173300 M79.18 043941 Pes anseri nus bursitis of left knee 8129260326 399831 M70.52 [id number] [id number] Felix Rosas MD [facility] [address] [place] [address] 06/16/2024 07:53:40 06/16/2024 08:48:44 Episodic migraine [id number] 93119 G43.C1 - The patient notes that migraine headache has been refractory to numerous medication s, including OTC medication , prescripti on NSAIDS, Tizandine, Prednisone , Imitrex, Ubrelvy, Qulipta, Tramadol, and Hydrocodon e/APAP, among others.-Co ntinue Nurtec 75mg ODT Dupuytren' s contracture of finger 294289794 M72.0 - The patient complains of right hand pain with contractur e, including ulnar deviation and triggering of the 3rd and 4th digits. Based on the history and physical exam it appears that the pain is multifacto rial in origin, including Dupuytren contractur e, ulnar deviation, and stenosing tenosynovi tis secondary to RA and osteoarthr itis.- The patient has attempted to make lifestyle modificati ons, but pain continues to impede performing ADLs, thereby negatively affecting quality of life. I think the patient is a good candidate for interventi onal treatment, as their pain has been refractory to conservati ve (PT and at-home exercises/ stretches) and pharmacolo gic approaches .- The patient is S/P trigger finger injection at the 3rd and 4th digits of the right hand, which was successful in the short-term .- The patient is pending approval for a right hand Xiaflex injection. Bilateral trigger fingers [id number] 9269058 M65.30 Rheumatoid arthritis 698 36500 M06.9 Pain of le ft knee joint 1282008628 78441 M25.562 Arthritis of left knee 5150286834 104692 M13.862 Dupuytren contracture of right palm 6151855100 7394413 M72.0 Osteoarthr itis of left knee joint 1141096323 43305 M17.12 - The patient is S/P completion of left knee Synojoynt series injections , which were successful in decreasing left knee pain by greater than 50%, yet pain remains bothersome .- I'm suspicious of left knee pes anserine bursitis.- it appears that the left pes anserine bursa injection helped her to some extent but patient does have meniscal issues. I did advise the patient to wait for 2 more weeks to see the peak effect of the steroid before considerin g that the injection did not help.I will go ahead and get an MRI of the left knee to visualize meniscal pathology. Follow up 1 week after MRI Headache 48991113 R51.9 Myofascial pain 37071179 9 M79.10 - The patient complains of neck pain described as tightness/ spasm and headache (wakes her up from sleep and improves after being awake a few hours). I think headache is mixed in origin (migrainou s and cervicogen ic). I think occipital neuralgia may be involved too (headache oftentimes radiates from the base of the skull to the vertex and orbit),- The patient has attempted to make lifestyle modificati ons, but pain continues to impede performing ADLs, thereby negatively affecting quality of life. I think the patient is a good candidate for interventi onal treatment, as their pain has been refractory to conservati ve (PT and/or physician- directed at-home exercises/ stretches) and pharmacolo gic approaches .- The patient received the TPI of the cervico-oc cipital region on 05/03/2024 and states it was successful in decreasing her pain in her neck by 100% and improvemen t in functionin g including neck rotation.- The patient is a good candidate to receive injections Q3. Pes anseri nus bursitis of left knee [id number] 144683 M70.52 [id number] Felix Rosas MD [facility] [address] [facility] [address] [place] [address] 07/23/2024 08:24:56 07/23/2024 09:06:34 Episodic migraine [id number] 47060 G43.C1 - The patient notes that migraine headache has been refractory to numerous medication s, including OTC medication , prescripti on NSAIDS, Tizandine, Prednisone , Imitrex, Ubrelvy, Qulipta, Tramadol, and Hydrocodon e/APAP, among others.- Patient utilized PO nurtec on Friday with good benefit, she has not had a headache since that time.- Due to patient receiving significan t benefit from Nurtec I will prescribe accordingl y to be used as needed. Dupuytren' s contracture of finger 254459098 M72.0 - The patient complains of right hand pain with contractur e, including ulnar deviation and triggering of the 3rd and 4th digits. Based on the history and physical exam it appears that the pain is multifacto rial in origin, including Dupuytren contractur e, ulnar deviation, and stenosing tenosynovi tis secondary to RA and osteoarthr itis.- The patient has attempted to make lifestyle modificati ons, but pain continues to impede performing ADLs, thereby negatively affecting quality of life. I think the patient is a good candidate for interventi onal treatment, as their pain has been refractory to conservati ve (PT and at-home exercises/ stretches) and pharmacolo gic approaches .- The patient is S/P trigger finger injection at the 3rd and 4th digits of the right hand, which was successful in the short-term .- The patient is pending approval for a right hand Xiaflex injection. Bilateral trigger fingers 6101010184 7033795 M65.30 Rheumatoid arthritis 698 14145 M06.9 Pain of le ft knee joint 2774611300 23568 M25.562 Osteoarthr itis of left knee joint 3075504743 33699 M17.12 - The patient is S/P completion of left knee Synojoynt series injections , which were successful in decreasing left knee pain by greater than 50%, yet pain remains bothersome .- It appears that the left pes anserine bursa injection helped her to some extent but patient does have meniscal issues. I did advise the patient to wait for 2 more weeks to see the peak effect of the steroid before considerin g that the injection did not help.- MRI Left knee showed varus osteoarthr itis with a complex medial meniscus tear- Patient was referred to orthopedic s for further evaluation . Arthritis of left knee 3244336022 355158 M13.862 Dupuytren contracture of right palm 8073926639 1369764 M72.0 Headache 50858532 R51.9 Myofascial pain 15717008 9 M79.10 M79.18 742447 - The patient complains of neck pain described as tightness/ spasm and headache (wakes her up from sleep and improves after being awake a few hours). I think headache is mixed in origin (migrainou s and cervicogen ic). I think occipital neuralgia may be involved too (headache oftentimes radiates from the base of the skull to the vertex and orbit),- The patient has attempted to make lifestyle modificati ons, but pain continues to impede performing ADLs, thereby negatively affecting quality of life. I think the patient is a good candidate for interventi onal treatment, as their pain has been refractory to conservati ve (PT and/or physician- directed at-home exercises/ stretches) and pharmacolo gic approaches .- To address her pain I will proceed with a TPI Bilateral Trapezius, Occipital tendon and Levator Scapulae injection with Bup only in clinic today.- Follow up 1-2 weeks post injection. Pes anseri nus bursitis of left knee 3966737366 427652 M70.52 [id number] Felix Rosas MD [facility] [address] [place] [address] 08/23/2024 08:45:30 08/23/2024 09:20:15 Osteoarthritis of left knee joint 0196038199 96043 M17.12 94853515 - The patient is S/P completion of left knee Synojoynt series injections in 02/2024, which were successful in decreasing left knee pain by greater than 50%, yet pain remains bothersome .- MRI Left knee showed varus osteoarthr itis with a complex medial meniscus tear- The patient has attempted to make lifestyle modificati ons, but pain continues to impede performing ADLs, thereby negatively affecting quality of life. I think the patient is a good candidate for interventi onal treatment, as their pain has been refractory to conservati ve (PT and/or physician- directed at-home exercises/ stretches) and pharmacolo gic approaches .- After a detailed discussion of treatment modalities and the respective risks/bene fits, I will proceed with scheduling Left Supartz injections . Pain of bi lateral knee regions 8582361466 27495 M25.561 M25.562 76610347 -Patient reports pain in both knees; sensitive to touch.-I will refer patient to physical therapy to work on quad muscle strengthen ing.-I will follow up after physical therapy to assess effectiven ess. Myofascial pain 39565337 9 M79.10 M79.18 - Followed up from TPI Bilateral Trapezius, Occipital tendon and Levator Scapulae injection completed on 07/23/24.-Arnie daley reports she is doing great after TPI. Rheumatoid arthritis 698 84486 M06.9 [id number] MD Melissa Agarwalalexander rodriguez [facility] [address] [place] [address] 10/06/2024 10:06:11 10/06/2024 12:24:25 Adult health examination 047898873 Z00.00 4435918319 Hyperlipid emia screening 187825270 Z13.220 820026 Diabetes m ellitus screening 202943600 Z13.1 902751 Depressive disorder 3548 9007 F32.A Gastroesop hageal reflux disease 163409358 K21.9 Hypothyroidism 93285650 E03.9 due for labs Chronic ob structive pulmonary disease 21385283 J44.9 pt doing well on trelegy Vitamin D deficiency 347 65646 E55.9 51071 [id number] Felix Rosas MD [facility] [address] [place] [address] 09/20/2024 07:52:09 09/20/2024 08:44:26 Osteoarthritis of left knee joint 8693613880 62175 M17.12 44307182 - The patient is S/P completion of left knee Synojoynt series injections in 02/2024, which were successful in decreasing left knee pain by greater than 50%, yet pain remains bothersome .- MRI Left knee showed varus osteoarthr itis with a complex medial meniscus tear-Gerson nt is s/p Left knee Supartz # 3 on 09/16/24; she states her pain is better-Aft er discussion with patient; she wishes to proceed with # 4 & #5 of her left knee Supartz as previously scheduled. Pain of bi lateral knee regions 0647762013 32289 M25.561 M25.562 68251486 -Patient states she has pain in both knees but much worse on her left.-Elsa ent was referred to physical therapy to work on quad muscle strengthen ing at her 07/23/24 office visit.-I encouraged patient to continue with physical therapy. Myofascial pain 08209541 9 M79.10 M79.18 - S/p TPI Bilateral Trapezius, Occipital tendon and Levator Scapulae injection completed on 07/23/24; patient is doing great after TPI.-Gerson nt reports last week she had a headache for 3 days; but states she does not have a headache now.- The occipital pain is due to her myofascial pain-I will consider repeating in the future if pain persists. Rheumatoid arthritis 698 22786 M06.9 [id number] DAJA CESPEDES PA-C [facility] [address] [place] [address] 11/22/2024 08:20:18 11/22/2024 09:10:22 Osteoarthritis of left knee joint 6743819941 28651 M17.12 01844628 - The patient is S/P completion of left knee Supartz series, which was successful , as left knee pain has resolved and she notes near 100% pain reduction. - The patient is S/P completion of left knee Synojoynt series injections in 02/2024, which were successful in decreasing left knee pain by greater than 50%, but not as helpful as Supartz.- MRI Left knee showed varus osteoarthr itis with a complex medial meniscus tear.- The patient follows with ortho, but would like to hold off on a knee replacemen t.- I offered the patient a fu in 2-3 months to reassess pain, but she prefers to follow up prn.- The plan entails repeating gel series specifical ly Supartz every 6 months as needed. Pain of bi lateral knee regions 2146631852 51289 M25.561 M25.562 08186408 Myofascial pain 87731192 9 M79.10 M79.18 - S/p TPI Bilateral Trapezius, Occipital tendon and Levator Scapulae injection completed on 07/23/24, which was successful .-I will consider repeating in the future if pain persists. Rheumatoid arthritis 698 53712 M06.9 Health Concerns Section Related Observation LastModified by Organization Detai ls LastModified Time None Recorded Concern Status LastModified by Organization Details LastModified Time None Recorded Advance Directives Directive N: Payers Insurance Date Sequence Insurance Name Policy Number Policy Tracy Covered Member ID Tracy Member ID Guarantor Name 11/19/2024 1 [place] [id number] Nesha Weems [id number] Nesha Weems Notes Date Note Type Note Provider Name and Address Organization Details Recorded Time 07/23/2024 text/html ROS as noted in the HPI The patient is a 63 year old female presenting with bilateral hand pain (worse on the right). The patient has been diagnosed with RA, for which she follows with rheumatology. The patient has a recent history of a thoracic (T10) fracture following a horse riding accident (subsequently diagnosed with osteoporosis). The patient is receiving treatment (monthly injection) for osteoporosis. The patient follows with osteopathic medicine and landcare officer. The patient previously experienced an AE (facial flushing and HTN) following steroid exposure. The patient presents to the clinic today for pain reassessment regarding her migraine headaches. Patient states this week she had a migraine headache on Friday, and Fri. She took PO Nurtec as an abortive agent on Fri and her headache subsequently resolved. She is asking for a refill on her Nurtec. Today she is also complaining of cervico thoracic muscle pain and spasms. She states her pain is intermittent and worse with overuse. She endorses having cervico genic headaches after her muscles become spastic and painful for extended periods of time. Today her pain level is 5/10. MD [address], [place], [address], [facility] [place] & [place] 07/23/2024 12:29:25 08/23/2024 text/html ROS as noted in the HPI The patient is a 63 year old female presenting with bilateral hand pain (worse on the right). The patient has been diagnosed with RA, for which she follows with rheumatology. The patient has a recent history of a thoracic (T10) fracture following a horse riding accident (subsequently diagnosed with osteoporosis). The patient is receiving treatment (monthly injection) for osteoporosis. The patient follows with osteopathic medicine and landcare officer. The patient previously experienced an AE (facial flushing and HTN) following steroid exposure. The patient presents to the clinic today for follow up s/p bilateral trapezius, occipital tendon, and levator scapulae injection on 07/23/24. Patient reports pain relief almost 100% since her TPI. Patient reports yesterday while she was leading a horse by the halter; it jerked and caused her left knee to stop her for falling; and increased pain. Patient states she has knee brace but it is painful to wear at her medial knee. Patient states she would like to discuss knee injections to address her knee pain; before she resorts to surgery. Today her pain level is 6/10. MD [address], [place], [address], [place] [facility] & [place] 08/25/2024 08:15:05 09/20/2024 text/html ROS as noted in the HPI The patient is a 63 year old female presenting with bilateral hand pain (worse on the right). The patient has been diagnosed with RA, for which she follows with rheumatology. The patient has a recent history of a thoracic (T10) fracture following a horse riding accident (subsequently diagnosed with osteoporosis). The patient is receiving treatment (monthly injection) for osteoporosis. The patient follows with osteopathic medicine and landcare officer. The patient previously experienced an AE (facial flushing and HTN) following steroid exposure. The patient presents to the clinic today for follow up left knee Supartz #3 and occipital pain. Patient is s/p her left knee Supartz # 3; states her pain is better but after her injection on 09/16/24 she had some increased pain. Patient reports she did drive to [place] on 09/17/24; which she states increased her pain. She states her pain is in the inside of her knee. Patient sees Dr. Gamez for orthopedics; considering discussing a knee replacement if pain persists. Patient reports last week she had a headache for 3 days; but states she does not have a headache now. Today her pain level is 4/10. Felix Rosas MD [address] , [place], [address], [place] [facility] & [place] 09/20/2024 14:09:17 10/06/2024 text/html ROS as noted in the HPI Patient is here for yearly check up and follow up.Last dental visit: goes every 6 monthsLast eye exam: Mar 2024 Tdap vaccine: ovid vaccine: 3 completed doses completed initiallyShingles vaccine: not completed, will discuss rheumatologyPNA vaccine: completed mammogram: due July 2025 for f/u studyColon cancer screenin years ago, WNJavier, due in exa: osteoporosis 2022 , see below, currently on evenity since Apr 2024, followed by rheumatologyPap smear: Mar [address] 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 Castle at , currently on actemra, follows with PM as well for injections, planned for possible knee replacement. GERD: doing well on pepcid Osteoporosis: managed by rheum and currently on evenity. COPD: doing well well on trelegy Hypothyroidism: due for labs to f/u on this. Tova Maddox MD [address], [place], [address], [facility] & [place] 10/06/2024 17:21:57 11/22/2024 text/html ROS as noted in the HPI The patient is a 63 year old female presenting with bilateral hand pain (worse on the right). The patient has been diagnosed with RA, for which she follows with rheumatology. The patient has a recent history of a thoracic (T10) fracture following a horse riding accident (subsequently diagnosed with osteoporosis). The patient is receiving treatment (monthly injection) for osteoporosis. The patient follows with osteopathic medicine and landcare officer. The patient previously experienced an AE (facial flushing and HTN) following steroid exposure. The patient is following up after completion of left knee Supartz series 5/5 injection. The patient states that the procedure was very successful, as left knee pain was reduced by almost 100%. The patient notes that Supartz was better than Synojoynt and steroid. She is hopeful for a year or more of relief. 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 Today the pain level is a 2/10. DAJA CESPEDES PA-C [address], [place], [address], [facility] [place] 11/22/2024 08:55:08 OBGyn Episode No OBEpisode recorded.
--- OUTSIDE RECORDS SUMMARY | 2024-12-12 10:14 | XMS_ITS | Continuity of Care Document ---
Author Organization [place] - [facility] & [facility] Address [address] [place] [address] Care Team Providers Care Postbed Stitcher Name Role Phone TOVA MADDOX Primary Care Provider Assessment Encounter Date Assessment Date Assessment LastModified by Organization Details LastModified Time 11/22/2024 11/22/2024 The patient is a 63 [...] The patient follows with osteopathic medicine and congregational care pastor. The patient previously experienced an AE (facial flushing and HTN) following steroid exposure. The patient is following up after left knee Supartz series completion. [email or web address] Not available 11/22/2024 08:54:54 Plan of Treatment Reminders Order Date Submit Date Provider Last Modified By Organization Details Last Modified Time Details Appointments OV EST 30 025 11:00AM Dulce Rodriguez PA-C Not available Not available Not available Lab None record ed. Referral None record ed. Procedures None record ed. Surgeries None record ed. Imaging None record ed. Medication Orders None record ed. Patient TargetsNo targets recorded. Patient Instructions Encounter Date Encounter Id Patient Instructions Last Modified By Organization Details Last Modified Time 11/22/2024 [id number] I have discussed in great detail our [...] and fully outlined in the informed consent. [email or web address] Not available 11/22/2024 08:54:27 Reason for Referral None Reported. Problems Name Problem SNOMED Code Status Onset Date Resolution Date Notes Provider Name and Address Organization Details Recorded Time Rheumatoid arthritis 51297194 Active 2021 Not Available [facility] 08:30:10 Chronic obstructiv e pulmonary disease 23310387 Active 2021 Not Available [facility] 3 08:30:10 Hypothyroi dism 05477135 Active 2021 Not Available [facility] 3 08:30:10 Obesity 163444238 Active 2021 Not Available [facility] 3 08:30:10 Unintentio nal weight gain 7679411174791 04 Active 2021 Not Available [facility] 3 08:30:10 Asthma 680135239 Active 2022 [place] Beardswort h null, [place] - [facility] [place] [facility] [place] 3 15:15:09 Migraine 89136587 Active 2022 [place] Beard[place] null, [place] [facility] [place] & [place] 3 15:15:17 Arthritis 0043419 Active 2022 [place] Beard[place] h null, [place] - [facility] [place] & [place] 3 15:15:23 Myofascial pain 282326838 Active 2024 Rosemary De Leon null, [place] - [facility] - [place] & [place] 5 09:09:28 Problem Notes None recorded. Procedures Surgical History Date Name Laterality Status Provider Name and Address Organization Details Recorded Time 07/23 Cervicothoracic Trigger Point Injection completed KSENIA TRAMMELL PA-C [address], [place], [address] , [place] - [facility] - [place] & [place] 5 09:54:12 06/11 Injection Only completed KSENIA TRAMMELL PA-C [address], [place], [address] , [place] - [facility] - [place] & [place] 5 10:00:17 05/03 Injection Only completed Rosemary De Leon [place] - [facility] - [place] & [place] 5 09:09:13 07/02 Injection Only completed DAJA CESPEDES PA-C [address], [place], [address] , [place] - [facility] - [place] & [place] 4 11:16:08 01/20 release of trigger finger completed Shantal NEVAREZ - [facility] - [place] & [place] 3 09:15:18 03/17 completed Cornelia NEVAREZ - [facility] - [place] & [place] 4 07:41:44 03/17 Date of Last Pap Smear completed Cornelia Gomezong [place] - [facility] - [place] & [place] 4 07:41:44 03/17 Most Recent Bone Density completed Cornelia Gomezong [place] - [facility] - [place] & [place] 4 07:41:44 03/17 Date of Last Colonoscopy completed Milly Meyerussen [place] - [facility] - [place] & [place] 2 14:06:28 03/17 Appendectomy completed Milly Gr ROQUE - [facility] - [place] & [place] 2 14:07:02 augmentation of bila teral breasts completed Brooke COVARRUBIAS [place] - [facility] & [place] 3 16:50:05 procedure on knee completed Mary Og [place] - [facility] - [place] & [place] 4 15:29:49 bunionectomy with os teotomy of first metatarsal completed Jina Gil [place] - [facility] - [place] & [place] 2 10:58:08 esophagogastroduodenoscopy completed Jina Gil [place] - [facility] - [place] & [place] 2 10:58:18 colonoscopy completed Jina Gil [place] - [facility] - [place] & [place] 2 10:58:27 Imaging Results None recorded. Procedure Notes None recorded. Medical Equipment None Reported. Allergies Allergen ID Allergen Name Allergen Category Reaction Reaction Severity Criticality Documentation Date Start Date Code Code System Note Provider Name and Address Organization Details Recorded Time 592772 cat dander environme nt Not available Not available Not available 01/28/2024 Kellen Staralexanderheidi papito correa, [place] - [facility] - [place] & [place] 5 12:49:52 No known drug allergies Medications [...] completed Not Available Not Available Not Available [facility] 75 mg disintegrat ing tablet Take 1 tablet every day by oral route as directed. 2024 active Not Available Not Available Not Avai lable Qulipta 60 mg tablet Take 1 tablet every day by oral route as directed for 15 days. 05/17 completed Not Available Not Available Not Available Vitals Date Recorded Body height Body mass index (BMI) Body weight Body temperature Oxygen saturation Oxygen saturation in Arterial blood by Pulse oximetry Heart rate Systolic And Diastolic Provider Name and Address Organization Details Last Updated DateTime 165.1 cm 26.8 kg/m2 24800.0 9 g 97.1 [degF] 100 % 100 % 79 /min 145/83 mm[Hg] Mary NEVAREZ [facility] & [place] 08:37:48 Social History Question Answer Notes LastModified by Organizat ion Details LastModified Time Tobacco Smoking Status Former Smoker Lisa Magana [facility], [facility] & [place] 11/28/2021 15:28:02 Do You Have An Advance Directive? No Information not available 01/02/2022 Are You Blind Or Do You Have Difficulty Seeing? No Information not available 01/02/2022 What Is Your Level Of Caffeine Consumption? Occasional [email or web address] Information not available 05/05/2023 Are You Deaf Or Do You Have Serious Difficulty Hearing? No [email or web address] Information not available 05/05/2023 When Did You Quit Smoking? 6-10yearssincel taz [email or web address] Information not available 05/05/2023 What Was The Date Of Your Most Recent Tobacco Screening? 08/29/2022 Information not available 09/09/2024 What Is Your Current Pack Years? 30ormorepackyea rs [email or web address] Information not available 05/05/2023 Are You Passively Exposed To Smoke? No [email or web address] Information not available 11/28/2021 How Much Tobacco Do You Smoke? 0.25 PPD [email or web address] Information not available 09/19/2023 Has Tobacco Cessation Counseling Been Provided? No [email or web address] Information not available 05/05/2023 How Many Years Have You Smoked Tobacco? 35 [email or web address] Information not available 11/28/2021 Sex: Unknown Functional Status Question Answer Note LastModified by Organizat ion Details LastModified Time Do you use any illicit or recreational drugs? No [email or web address] Information not available 11/28/2021 Do you or have you ever used any other forms of tobacco or nicotine? No [email or web address] Information not available 05/05/2023 What is your level of alcohol consumption? Occasional Information not available 01/02/2022 Do you or have you ever used smokeless tobacco? Never used smokeless tobacco Information not available 01/02/2022 What is your exercise level? Moderate [email or web address] Information not available 09/19/2023 Mental Status Question Answer Note LastModified by Organization D etails LastModified Time Do you feel stressed (tense, restless, nervous, or anxious, or unable to sleep at night)? [id number] [email or web address] Information not available 01/02/2022 Family History Relationship Description Onset Age of this Age Resolved Age Notes LastModified by Organization Details LastModified Time Father No current problems or disability Deceas ed [email or web address] Not available 11/22/2024 08:23:01 Mother No current problems or disability Deceas ed - RA [email or web address] Not available 11/22/2024 08:23:01 Mother Headache pt. added direct ly (12/07) [email or web address] Not available 12/07/2021 11:43:22 Mother Rheumatoid arthritis pt. added direct ly (12/07) [email or web address] Not available 12/07/2021 11:43:42 Mother Disorder of thyroid gland pt. added direct ly (12/07) [email or web address] Not available 12/07/2021 11:44:01 Brother No current problems or disability [email or web address] Not available 10/2024 08:23:01 Brother Headache pt. added direct ly (12/07) [email or web address] Not available 12/07/2021 11:43:22 Brother Disorder of thyroid gland pt. added direct ly (12/07) [email or web address] Not available 12/07/2021 11:44:01 Sister No current problems or disability [email or web address] Not available 10/2024 08:23:01 Sister Headache pt. added direct ly (12/07) [email or web address] Not available 12/07/2021 11:43:22 Sister Rheumatoid arthritis pt. added direct ly (12/07) [email or web address] Not available 12/07/2021 11:43:42 Sister Disorder of thyroid gland pt. added direct ly (12/07) [email or web address] Not available 12/07/2021 11:44:01 Son No current problems or disability [email or web address] Not available 10/2024 08:23:01 Son Headache pt. added direct ly (12/07) [email or web address] Not available 12/07/2021 11:43:22 Daughter No current problems or disability [email or web address] Not available 10/2024 08:23:01 Maternal Grandmother Headache pt. added direct ly (12/07) [email or web address] Not available 12/07/2021 11:43:22 Maternal Aunt Headache pt. added direct ly (12/07) [email or web address] Not available 12/07/2021 11:43:22 Maternal Aunt Rheumatoid arthritis pt. added direct ly (12/07) [email or web address] Not available 12/07/2021 11:43:42 Medical History Condition Response Other Y Lung Disease Y COPD Y Autoimmune disease Y Vision or Eye Problems Y Arthritis Y Rheumatoid Arthritis Y Headaches Y Thyroid Problems Y Acne Y Skin Problems Y Back Problems Y Asthma Y Pulmonary Embolism Y Thrombophilias Y Gynecological History Statement/Question Response [...] Tdap 10/01/2022 completed Tova Maddox MD [address] [facility], [place], [address], [facility] & [place] 10/01/2022 12:40:08 Influenza, MDCK, quadrivalent, PF 12/02/2022 completed Tova Maddox MD [address] [facility], [place], [address], [facility] & [place] 12/02/2022 16:55:12 Past Encounters Encounter ID Performer Location Encounter Start Date Encounter Closed Date Diagnosis/Indication Diagnosis SNOMED-CT Code Diagnosis ICD10 Code Diagnosis IMO Codes Diagnosis Note [id number] DAJA CESPEDES PA-C [facility] [address] [place] [address] 11/22/2024 08:20:18 11/22/2024 09:10:22 Osteoarthritis of left knee joint 8956139131 10353 M17.12 40385090 - The patient is S/P completion of [...] needed. Pain of bi lateral knee regions 3392335085 99366 M25.561 M25.562 30079289 Myofascial pain 52276547 9 M79.10 M79.18 - S/p TPI Bilateral Trapezius, Occipital tendon and Levator Scapulae injection completed on 07/23/24, which was successful .-I will consider repeating in the future if pain persists. Rheumatoid arthritis 698 34687 M06.9 Health Concerns Section Related Observation LastModified by Organization Detai ls LastModified Time None Recorded Concern Status LastModified by Organization Details LastModified Time None Recorded Payers Encounter Date Sequence Insurance Name Policy Number Policy Tracy Covered Member ID Tracy Member ID Guarantor Name 11/22/2024 1 [place]: [place] [facility] [id number] Nesha Weems [id number] Nesha Weems Notes Date Note Type Note Provider Name and Address Organization Details Recorded Time 11/22/2024 text/html ROS as noted in the [...] The patient follows with osteopathic medicine and congregational care pastor. The patient previously experienced an AE (facial [...] level is a 2/10. DAJA CESPEDES PA-C [address], [place], [address], [facility] - [place] & [place] 11/22/2024 08:55:08 OBGyn Episode No OBEpisode recorded.
== END 2024-12-12 23:59 | disposition home or self-care (01) ==
LOC: RAD 10:12
PROVIDERS: PCP Family Medicine; Visit Provider Physician Assistant Surgical
DX: M17.12 Unilateral primary osteoarthritis, left knee (principal)
CPT/HCPCS: 73562